=== PATIENT | female | born 1985 | race Caucasian/White ===

== ENCOUNTER 2018-10-27 16:04 | Emergency (ER) | payer MEDICAID ==
[2018-10-27 16:21] VITALS: BP 105/65
[2018-10-27 16:28] LABS: APPEARANCE,URINE CLEAR; BILIRUBIN,URINE NEGATIVE (NEGATIVE); COLOR,URINE COLORLESS; GLUCOSE, URINE NEGATIVE (NEGATIVE); KETONES,URINE NEGATIVE (NEGATIVE); LEUKOCYTE ESTERASE,URINE NEGATIVE (NEGATIVE); NITRITE,URINE NEGATIVE (NEGATIVE); PROTEIN,URINE NEGATIVE (NEGATIVE); URINE SPECIFIC GRAVITY 1.002; UROBILINOGEN,URINE NEGATIVE mg/dL (<2.0)
[2018-10-27 16:45] LABS: URINE AMPHETAMINES SCREEN NEGATIVE; URINE BARBITURATES SCREEN NEGATIVE; URINE BENZODIAZEPINES SCREEN NEGATIVE; URINE COCAINE SCREEN NEGATIVE; URINE MARIJUANA (THC) SCREEN NEGATIVE; URINE METHADONE SCREEN NEGATIVE; URINE PHENCYCLIDINE SCREEN NEGATIVE
== END 2018-10-27 17:00 | disposition left against medical advice (07) ==
LOC: ER 16:04
DX: Z53.21 Procedure and treatment not carried out due to patient leaving prior to being seen by health care provider (principal)
CPT/HCPCS: 80307; 81001

== ENCOUNTER 2018-10-30 11:55 | Emergency (ER) | payer MEDICAID ==
[2018-10-30] MEDS ORDERED: BENZONATATE 100 MG CAPSULE PO ONE (13:24)
[2018-10-30] MEDS ORDERED: IBUPROFEN 600 MG TABLET PO ONE (13:24)
[2018-10-30] MEDS ORDERED: IPRATROPIUM/ALBUTEROL 0.5-2.5 MG/3 ML AMPUL NEB ONE (13:25)
[2018-10-30] MEDS ORDERED: PREDNISONE 20 MG TABLET PO ONE (13:25)
[2018-10-30] MEDS ORDERED: ALBUTEROL SULFATE HFA (90 MCG/PUFF) 8 GM MDI (1 MDI/ER DISP) IH ONE (14:22)
--- NOTE | 2018-10-30 14:22 | ER Document Report ---
HPI - HPI Time Seen by Provider: 10/30/18 13:11 Pain Level: 3 Notes: Patient is a 33-year-old female who presents with chief complaint of sore throat over the last 2 days with cough and congestion as well as leg spasms. Patient reports that she takes Percocet or gabapentin for her leg spasms. Patient requesting a refill of these medications. - CONSTITUTIONAL Constitutional: REPORTS: Fever. DENIES: Chills - NEURO Neurology: REPORTS: Headache - REPRODUCTIVE Reproductive: DENIES: : Past Medical History - General Information source: Patient - Social History Smoking Status: Current Every Day Smoker Family History: None, Reviewed & Not Pertinent Patient has suicidal ideation: No Patient has homicidal ideation: No Pulmonary Medical History: Reports: Hx Asthma Renal/ Medical History: Denies: Hx Peritoneal Dialysis Past Surgical History: Reports: Hx Orthopedic Surgery - jaw - Immunizations Hx Diphtheria, Pertussis, Tetanus Vaccination: Yes - unknown Vertical Provider Document - CONSTITUTIONAL Notes: PHYSICAL EXAMINATION: GENERAL: Disheveled, well-nourished and in no acute distress. HEAD: Atraumatic, normocephalic. EYES: Pupils equal round and reactive to light, extraocular movements intact, conjunctiva are normal. ENT: Nares patent with clear rhinorrhea., oropharynx clear without exudates, no evidence of peritonsillar abscess.. Moist mucous membranes. NECK: Normal range of motion, supple without lymphadenopathy LUNGS: Breath sounds clear to auscultation bilaterally and equal. Mild expiratory wheezing noted bilaterally. HEART: Regular rate and rhythm without murmurs ABDOMEN: Soft, nontender, nondistended abdomen. No guarding, no rebound. No masses appreciated. Female : deferred Musculoskeletal: Normal range of motion, no pitting or edema. No cyanosis. NEUROLOGICAL: Cranial nerves grossly intact. Normal speech, normal gait. Normal sensory, motor exams PSYCH: Flat affect. SKIN: Warm, Dry, normal turgor, no rashes or lesions noted. - INFECTION CONTROL TRAVEL OUTSIDE OF THE [place] IN LAST 30 DAYS: No Course - Re-evaluation Re-evalutation: Rapid strep is negative. Patient's lung sounds improved after administration of breathing treatments. Explained to patient that I would not be able to prescribe her Percocet or gabapentin for her chronic leg spasms as that is not the appropriate treatment nor do we manage chronic pain in the emergency department. Patient with likely viral upper respiratory illness. Will be discharged home in stable condition. - Vital Signs Vital signs: Temp Pulse Resp BP Pulse Ox 98.5 F 111 H 16 111/73 99 10/30/18 12:09 10/30/18 12:09 10/30/18 12:09 10/30/18 12:10/30/18 12:09 Discharge - Discharge Clinical Impression: Viral upper respiratory illness Condition: Stable Disposition: HOME, SELF-CARE Additional Instructions: UPPER RESPIRATORY ILLNESS: You have a viral infection of the respiratory passages -- a "cold." This common infection causes nasal congestion, drainage, and often sore throat and cough. It is highly contagious. The disease usually lasts about 10 to 14 days. There is no "cure" for the viral infection -- it must run its course. If there is a complication, such as bacterial infection in the nose, sinuses, middle ear, or bronchial tubes, antibiotics may be required. The antibiotics won't affect the virus. Drink plenty of fluids. A humidifier may help. An expectorant medication or decongestant may make you more comfortable. Use acetaminophen or ibuprofen for fever or aches. See the doctor if fever persists over two days, if there is any significant worsening of your symptoms, or if you simply fail to improve as expected. BRONCHOSPASM: You have tightness in the bronchial tubes, called bronchospasm. This often occurs with bronchial infections. Allergies, inhaled chemicals, and polluted or cold air can also provoke bronchospasm. It's more likely in patients with asthma in the family. Emergency treatment of bronchospasm may include adrenaline shots or bronchodilator aerosol. You may feel lightheaded and have a rapid pulse for an hour or two. Rest and get plenty of fluids. At home, we'll treat you with a bronchodilator inhaler. Antibiotics and corticosteroids may be required for some patients. Until you recover, avoid chemical fumes, dusts, pollens, and exercising in very cold or dry air. If you smoke, stop now!! If you develop a fever, increased wheezing, chest pain, or severe shortness of breath, you should contact the doctor immediately. DECONGESTANT MEDICATION: A decongestant medicine has been prescribed. Often this medicine is combined in the same tablet with an antihistamine or expectorant. This type of medicine is helpful in treating a bad cold or sinus condition, as well as in treatment of the nasal congestion of hay fever. It is not of much benefit for lung infections. Decongestant medicines are related to stimulants. They can cause an increase in blood pressure and heart rate. Persons with heart disease and high blood pressure should not take decongestants without discussing this with the physician. If you develop palpitations, chest pain, headache, or tremors, stop the medicine and consult your physician. COUGH-SUPPRESSANT & EXPECTORANT MEDICATION: You are to use a cough medication as needed for relief of symptoms. This medicine is a combination of an expectorant (to make the mucous thinner and more easily "coughed up") and a cough suppressant (to reduce the frequency of coughing). The cough-suppressant medicine is related to narcotics. You may experience mild nausea and sleepiness. Some patients who are very sensitive to narcotics may have stomach pain from this medicine. Taking the medicine with food reduces these side effects. Do not drive or work with machinery until you know how this medicine affects you. The expectorant should have no side effects. Iodine-containing expectorants (such as organidin) should not be taken by persons with active thyroid disease unless approved by your doctor. Call the doctor if you develop shortness of breath, hives, rash, itching, lightheadedness, or severe nausea and vomiting. INHALED BRONCHODILATORS: You have received a treatment of and/or prescription for an inhaled bronchodilator -- a medication which stimulates the airways in the lung to dilate. This improves the flow of air in asthma, bronchitis, and emphysema. These medicines have some similarity to adrenaline, and can cause similar side effects: shakiness, racing heart, and a sense of nervousness. These side effects decrease with time. Contact your doctor if these side effects are severe. Do not over-use the medicine. Too-frequent use of the inhaler may make it ineffective. Call your doctor if the inhaler is not controlling your symptoms at the prescribed doses. STEROID MEDICATION: You have been given an injection of or oral medicine of the cortisone/steroid class. This medication is used to control inflammation or allergy. Marcus t is usually only given for a short period of time, until the acute process subsides. There are usually no side effects from short-term use of cortisone-like medications. Some persons feel an increased sense of well-being and are not sleepy at bedtime. Long-term use of cortisone medications is best avoided, unless required for a severe condition. If your condition does not remit, or relapses after the course of corticosteroid medication, you should consult your physician. USE OF ACETAMINOPHEN (Tylenol): Acetaminophen may be taken for pain relief or fever control. It's much safer than aspirin, offering a wider range of "safe" dosages. It is safe during . Some brand names are Tylenol, Panadol, Datril, Anacin 3, Tempra, and Liquiprin. Acetaminophen can be repeated every four hours. The following are maximum recommended dosages: >89 pounds or adults 650 mg to 900 mg Acetaminophen can be repeated every four hours. Maximum dose not to exceed 4000 mg a day. SMOKING: If you smoke, you should stop smoking. The tar and chemicals in cigarette smoke are harmful. Smoking has been shown to cause: emphysema chronic bronchitis lung cancer mouth and throat cancer stomach and pancreas cancer premature aging defects In addition, smoking increases ear and lung infections in children of smokers. FOLLOW-UP CARE: If you have been referred to a physician for follow-up care, call the physicians office for an appointment as you were instructed or within the next two days. If you experience worsening or a significant change in your symptoms, notify the physician immediately or return to the Emergency Department at any time for re-evaluation. Prescriptions: Benzonatate [Tessalon Perles 100 mg Capsule] 100 mg PO Q8HP PRN #40 capsule PRN Reason: Fluticasone Propionate [Flonase Nasal [place] 50 Mcg/[place] 16 gm] 2 sprays NASL Q12 #1 inhaler Prednisone [Deltasone 20 mg Tablet] 3 tab PO DAILY 4 Days #12 tablet
[2018-10-30 14:59] VITALS: BP 110/64
== END 2018-10-30 15:08 | disposition home or self-care (01) ==
LOC: ER 11:55
DX: J06.9 Acute upper respiratory infection, unspecified (principal); B97.89 Other viral agents as the cause of diseases classified elsewhere; J02.9 Acute pharyngitis, unspecified; R05 Cough; R09.81 Nasal congestion; M62.838 Other muscle spasm; Z79.899 Other long term (current) drug therapy; F17.200 Nicotine dependence, unspecified, uncomplicated; J45.909 Unspecified asthma, uncomplicated
CPT/HCPCS: 94640; 99283; 87070; 87880; 87077; J3490 ×3; J7512; J7620

== ENCOUNTER 2018-12-04 09:43 | Emergency (ER) | payer MEDICAID ==
[2018-12-04] MEDS ORDERED: LIDOCAINE 5% (700 MG) TRANSDERMAL ADH..PATCH TP ONE (10:58)
[2018-12-04] MEDS ORDERED: KETOROLAC TROMETHAMINE 60 MG/2 ML SDV IM ONE (10:58)
[2018-12-04] MEDS ORDERED: DEXAMETHASONE 4 MG TABLET PO ONE (10:58)
--- NOTE | 2018-12-04 11:04 | ER Document Report ---
ED Fall - General Chief Complaint: Fall Stated Complaint: FALL Time Seen by Provider: 12/04/18 10:49 Mode of Arrival: Ambulatory Information source: Patient Notes: 33-year-old female presents to ED for complaint of pain to her lower back radiating upper back since Tuesday. She states she fell down 6 stairs landing on her tailbone. She states she has not been able to move a lot since then because she fell. She states she has been taken Tylenol and Motrin and that did not help so at 8:00 this morning she took 1 of her friend's Percocet 02/16/2025. Patient is alert oriented respirations regular and unlabored speaking in full sentences walks with a limp bent over due to the pain in her tailbone. She states that her period was at least 2-3 weeks ago she is not sure when but she does not think she is . TRAVEL OUTSIDE OF THE [place] IN LAST 30 DAYS: No - HPI Occurred: Other - Tuesday Where: Home, Indoors Context: Tripped - Fell down 6 steps Associated symptoms: None Location of injury/pain: Back Severity: Severe Pain Level: 5 - Related data Allergies/Adverse Reactions: No Known Allergies Allergy (Verified 12/04/18 09:46) Past Medical History - General Information source: Patient - Social History Smoking Status: Current Every Day Smoker Cigarette use (# per day): Yes - ppd Chew tobacco use (# tins/day): No Smoking Education Provided: Yes - 4 min Frequency of alcohol use: Social Drug Abuse: Prescription drugs - Took 1 of her friend's Percocets due to the pain Lives with: Family Family History: None, Reviewed & Not Pertinent Patient has suicidal ideation: No Patient has homicidal ideation: No - Past Medical History Cardiac Medical History: Reports: None Pulmonary Medical History: Reports: Hx Asthma EENT Medical History: Reports: None Neurological Medical History: Reports: None Endocrine Medical History: Reports: None Renal/ Medical History: Reports: None Malignancy Medical History: Reports: None GI Medical History: Reports: None Musculoskeletal Medical History: Reports Hx Musculoskeletal Trauma, Reports Hx Restless Leg Syndrome Skin Medical History: Reports None Psychiatric Medical History: Reports: Hx Anxiety, Hx Depression Traumatic Medical History: Reports: None Infectious Medical History: Reports: None Past Surgical History: Reports: Hx Orthopedic Surgery - jaw - Immunizations Immunizations up to date: No Hx Diphtheria, Pertussis, Tetanus Vaccination: No - unknown Review of Systems - Review of Systems Constitutional: No symptoms reported EENT: No symptoms reported Cardiovascular: No symptoms reported Respiratory: No symptoms reported Gastrointestinal: No symptoms reported Genitourinary: No symptoms reported Female Genitourinary: No symptoms reported Musculoskeletal: Back pain, Muscle pain, Muscle stiffness Skin: No symptoms reported Hematologic/Lymphatic: No symptoms reported Neurological/Psychological: No symptoms reported -: Yes All other systems reviewed and negative Physical Exam - Vital signs Vitals: Temp Pulse Resp BP Pulse Ox 98.8 F 96 16 107/79 96 12/04/18 09:49 12/04/18 09:49 12/04/18 09:49 12/04/18 09:49 12/04/18 09:49 Interpretation: Normal - General General appearance: Appears well, Alert - HEENT Head: Normocephalic, Atraumatic Eyes: Normal Pupils: PERRL - Respiratory Respiratory status: No respiratory distress Chest status: Nontender Breath sounds: Normal Chest palpation: Normal - Cardiovascular Rhythm: Regular Heart sounds: Normal auscultation Murmur: No - Abdominal Inspection: Normal Distension: No distension Bowel sounds: Normal Tenderness: Nontender Organomegaly: No organomegaly - Back Back: Normal, Tender, Vertebra tenderness. No: Deformity/step-off, CVA tenderness, Scars, Scoliosis, Wounds Notes: Patient has no signs or symptoms of cauda equina, she is able to walk with a even gait. She is limping due to the pain. She has no loss of control of bowel or bladder, no saddle anesthesia, no loss of no loss of control of the lower extremities. - Extremities General upper extremity: Normal inspection, Nontender, Normal color, Normal ROM, Normal temperature General lower extremity: Normal inspection, Nontender, Normal color, Normal ROM, Normal temperature, Normal weight bearing. No: Poncho's sign - Neurological Neuro grossly intact: Yes Cognition: Normal Orientation: AAOx4 [place] Coma Scale Eye Opening: Spontaneous [place] Coma Scale Verbal: Oriented [place] Coma Scale Motor: Obeys Commands [place] Coma Scale Total: 15 Speech: Normal Motor strength normal: LUE, RUE, LLE, RLE Sensory: Normal - Psychological Associated symptoms: Normal affect, Normal mood - Skin Skin Temperature: Warm Skin Moisture: Dry Skin Color: Normal Course - Re-evaluation Re-evalutation: 12/04/18 13:48 After performing a Medical Screening Examination, I estimate there is LOW risk for EXPANDING OR RUPTURED ABDOMINAL AORTIC ANEURYSM, CAUDA EQUINA SYNDROME, EPIDURAL MASS LESION, or HERNIATED DISK CAUSING SEVERE SPINAL STENOSIS, thus I consider the discharge disposition reasonable. I have reevaluated this patient multiple times and no significant life threatening changes are noted. The patient and I have discussed the diagnosis and risks, and we agree with discharging home and close follow-up. We also discussed returning to the Emergency Department immediately if new or worsening symptoms occur with the understanding that symptoms and presentations can change. We have discussed the symptoms which are most concerning (e.g., saddle anesthesia, urinary or bowel incontinence or retention, changing or worsening pain) that necessitate immediate return. - Vital Signs Vital signs: Temp Pulse Resp BP Pulse Ox 98.6 F 88 15 112/79 98 12/04/18 12:40 12/04/18 12:40 12/04/18 12:40 12/04/18 12:40 12/04/18 12:40 - Laboratory Laboratory results interpreted by me: 12/04/18 10:55 Urine Urobilinogen 2.0 H - Diagnostic Test Radiology reviewed: Image reviewed, Reports reviewed Discharge - Discharge Clinical Impression: Muscle strain Fall Qualifiers: Encounter type: initial encounter Qualified Code(s): W19.XXXA - Unspecified fall, initial encounter Back pain Qualifiers: Back pain location: low back pain Chronicity: acute Back pain laterality: bilateral Sciatica presence: without sciatica Qualified Code(s): M54.5 - Low back pain Condition: Stable Disposition: HOME, SELF-CARE Instructions: Family Physicians / Practices Additional Instructions: CONTUSION: Your injury has resulted in a contusion -- a crushing of the deep tissues. No injury to important structures was detected during the physician's exam. Contusions vary in the amount of pain they cause, and in the length of time required for healing. Typically, the area will become bruised, and will remain painful to touch for two or three weeks. However, most patients are back to working and playing within a few days. After the initial period of rest and cold-packs, your symptoms (together with the doctor's recommendations) will determine how rapidly you can get back to full activity. Usually this means "do what feels okay, but don't do things that hurt." If re-examination was recommended, it's important to follow up as instruc braulio. Call the doctor or return any time if pain increases, if swelling becomes severe, if you develop numbness or weakness in an injured extremity, or if any other alarming symptoms occur. LOW BACK PAIN: Three out of every four people will have an episode of disabling back pain during their lifetime. Most commonly the pain is due to straining of the muscles and ligaments in the low back. Usual treatment includes: (1) Rest on a firm surface. Avoid lying on your stomach. (2) Ice pack the painful area. After a few days, gentle heat may be used intermittently to relax the area, or ice packs can be continued. (3) Medication may be needed -- muscle relaxers and antiinflammatory medicines are commonly used. (4) As the back improves, exercises are prescribed to strengthen the back and abdominal muscles. Your doctor will advise you on the proper care for your back at each stage in your recovery. You may be better in a few days -- or healing may take several weeks. If new symptoms of a "herniated disc" (radiation of pain, numbness, or tingling down the back of the leg or weakness in the leg) occur, you should be re-examined. Further testing may be necessary. USE OF TYLENOL (ACETAMINOPHEN): Acetaminophen may be taken for pain relief or fever control. It's much safer than aspirin, offering a wider range of "safe" dosages. It is safe during . Some brand names are Tylenol, Panadol, Datril, Anacin 3, Tempra, and Liquiprin. Acetaminophen can be repeated every four hours. The following are maximum recommended dosages: WEIGHT Dose Drops Elixir Chewable(80mg) (LBS.) drprs=droppers tsp=teaspoon 6 40 mg 0.4 ml (1/2) 6-11 80 mg 0.8 ml (full) tsp 1 tab 12-16 120 mg 1 1/2 drprs 3/4 tsp 1 1/2 tabs 17-23 160 mg 2 drprs 1 tsp 2 tabs 24-30 240 mg 3 drprs 1 1/2 tsp 3 tabs 30-35 320 mg 2 tsp 4 tabs 36-41 360 mg 2 1/4 tsp 4 1/2 tabs 42-47 400 mg 2 1/2 tsp 5 tabs 48-53 480 mg 3 tsp 6 tabs 54-59 520 mg 3 1/4 tsp 6 1/2 tabs 60-64 560 mg 3 1/2 tsp 7 tabs 65-70 600 mg 3 3/4 tsp 7 1/2 tabs 71-76 640 mg 4 tsp 8 tabs 77-82 720 mg 4 1/2 tsp 9 tabs 83-88 800 mg 5 tsp 10 tabs >89 pounds or adults 650 mg to 900 mg Acetaminophen can be repeated every four hours. Maximum dose not to exceed 4000 mg a day. These maximum recommended dosages are slightly higher than the dosages written on the product container, but these dosages are very safe and below the toxic dosage for acetaminophen. ICE PACKS: Apply ice packs frequently against the painful area. Many different schedules are recommended, such as "20 minutes on, 20 minutes off" or "one hour ice, two hours rest." If you need to work, you may need to go longer between ice treatments. You should plan to have the area ice packed AT LEAST one fourth of the time. The ice should be applied over the wrap, tape, or splint, or over a layer of cloth -- not directly against the skin. Some ice bags have a built-in cloth and can be put directly on the skin. WARM PACKS: After approximately two days, apply gentle heat (such as a heating pad or hot water bottle) for about 20 to 30 minutes about every two hours -- at least four times daily. Warmth and elevation will help you make a more rapid recovery, and will ease the pain considerably. Do not use HOT heat, and never apply heat for longer than 30 minutes. The continuous heat can invisibly damage skin and muscles -- even when no burn is seen on the surface. Damaged muscles can make you MORE sore. MUSCLE RELAXERS: Muscle relaxing medications are usually prescribed for acute muscle spasm or injury to the neck and back. They are often combined with antiinflammatory pain medication for increased relief. You may stop the muscle relaxer when the pain and stiffness have improved. Start the medication again if spasms recur. Muscle relaxers may cause drowsiness, especially with the first dose. Do not operate machinery or drive while under the effects of the medication. Most muscle relaxers last up to 24 hours. Do not combine the medication with alcohol. Toradol Injection You have been given an injection of ketorolac tromethamine (Toradol). This is an excellent, safe drug for pain control. It also has potent antiinflammatory action. You should have significant pain relief within about one hour. Toradol is not addicting and is non-sedating. It does not interfere with driving or work. Call or return if you develop itching, hives, shortness of breath, or rash. Stretching Exercises for the Back The physician has recommended that you begin stretching exercises for your back. These are often used even while the back is painful. However, you should notify the physician if the activities seem to increase your pain. PELVIC TILT: Lie flat on your back with knees bent. Tighten your stomach and buttock muscles so it flattens your lower back against the floor. Hold 10 seconds. Repeat 10 times, twice daily. KNEE RAISE: Lying on the back with knees bent, raise one knee to your chest, then the other. Hold both knees against the chest 10 seconds, then lower one knee at a time. Repeat 10 times, twice daily. PARTIAL TRUNK RAISE: Lie face down, arms at your sides. Keeping your waist on the floor, use your arms raise your chest up. Support yourself on your elbows for 30 seconds. Repeat twice daily, increasing the time to two minutes as you recover. We have applied a Lidoderm patch to your back for your discomfort. This needs to be removed in 12 hours. She states she has Medicaid which would not pay for the prescription of Lidoderm patches but she can get them [id number] they are not quite as strong but they would help some. You could also use Aspercreme lidocaine cream which will do the same thing. You need to follow-up with your primary care doctor and get a back specialist if you continue to have pain. FOLLOW-UP CARE: If you have been referred to a physician for follow-up care, call the physicians office for an appointment as you were instructed or within the next two days. If you experience worsening or a significant change in your symptoms, notify the physician immediately or return to the Emergency Department at any time for re-evaluation. Prescriptions: Methocarbamol [Robaxin 500 mg Tablet] 500 mg PO BIDP PRN #20 tablet PRN Reason: Forms: Smoking Cessation Education
[2018-12-04 11:23] LABS: APPEARANCE,URINE CLOUDY; BILIRUBIN,URINE NEGATIVE (NEGATIVE); COLOR,URINE YELLOW; GLUCOSE, URINE NEGATIVE (NEGATIVE); KETONES,URINE NEGATIVE (NEGATIVE); LEUKOCYTE ESTERASE,URINE NEGATIVE (NEGATIVE); NITRITE,URINE NEGATIVE (NEGATIVE); PROTEIN,URINE NEGATIVE (NEGATIVE); URINE SPECIFIC GRAVITY 1.026
[2018-12-04 11:33] LABS: URINE AMPHETAMINES SCREEN NEGATIVE; URINE BARBITURATES SCREEN NEGATIVE; URINE BENZODIAZEPINES SCREEN UNCONFIRMED POSITIVE; URINE COCAINE SCREEN NEGATIVE; URINE MARIJUANA (THC) SCREEN NEGATIVE; URINE METHADONE SCREEN NEGATIVE; URINE PHENCYCLIDINE SCREEN NEGATIVE
--- NOTE | 2018-12-04 12:33 | RADIOLOGY REPORT (SQ) ---
EXAM DESCRIPTION: L SPINE WHOLE COMPLETED DATE/TIME: 12/04/2018 12:00 pm REASON FOR STUDY: fall pain in coccyx COMPARISON: None. NUMBER OF VIEWS: Five views including obliques. TECHNIQUE: AP, lateral, oblique, and sacral radiographic images acquired of the lumbar spine. LIMITATIONS: None. FINDINGS: MINERALIZATION: Normal. SEGMENTATION: Normal. No transitional anatomy. ALIGNMENT: Minimal scoliosis. VERTEBRAE: Maintained height. No fracture or worrisome bone lesion. DISCS: Preserved height. No significant osteophytes or end plate irregularity. POSTERIOR ELEMENTS: Pedicles and facets are intact. No pars defect or posterior arch defects. HARDWARE: None in the spine. PARASPINAL SOFT TISSUES: Normal. PELVIS: Intact as visualized. No fractures or worrisome bone lesions. SI joints intact. OTHER: No other significant finding. IMPRESSION: Minimal scoliosis. No acute findings. TECHNICAL DOCUMENTATION: JOB ID: [id number] [employer]- All Rights Reserved Reading location - IP/workstation name: [email or web address]
[2018-12-04] MEDS ORDERED: METHOCARBAMOL 500 MG TABLET PO ONE (12:36)
[2018-12-04 12:42] VITALS: BP 112/79
== END 2018-12-04 12:42 | disposition home or self-care (01) ==
LOC: ER 09:43
DX: T14.8XXA Other injury of unspecified body region, initial encounter (principal); M54.5 Low back pain; W10.9XXA Fall (on) (from) unspecified stairs and steps, initial encounter; Y92.009 Unspecified place in unspecified non-institutional (private) residence as the place of occurrence of the external cause; J45.909 Unspecified asthma, uncomplicated; F17.210 Nicotine dependence, cigarettes, uncomplicated; Z71.6 Tobacco abuse counseling
CPT/HCPCS: 99406; 99283; 96372; 81025; 81001; 80307; 72110; J3490 ×3; J1885

== ENCOUNTER 2019-01-26 23:27 | Emergency (ER) | payer MEDICAID ==
[2019-01-27] MEDS ORDERED: DIPH/PERTUSS(ACELL)/TETANUS VAC/PF 0.5 ML SYR (>=10YO) IM ONE (01:09)
[2019-01-27] MEDS ORDERED: LIDOCAINE 1%/EPINEPHRINE INJ 20 ML VIAL INJ ONE (01:10)
--- NOTE | 2019-01-27 01:13 | ER Document Report ---
ED General - General Chief Complaint: Laceration Stated Complaint: Right arm laceration Time Seen by Provider: 01/27/19 00:55 Cannot obtain history due to: Intoxicated, Uncooperative Notes: Patient is a 33-year-old female with unknown past medical history who presents highly intoxicated, somewhat agitated after apparently punching a window because she could not get her knees. Patient is unable to provide appropriate history secondary to her degree of intoxication, does not know what time it is or why she is here in the emergency department. Per EMS the patient was bleeding heavily from a laceration of her right wrist and bandages were applied. Patient does not know when her last tetanus was administered. She does admit to drinking heavily tonight. TRAVEL OUTSIDE OF THE [place] IN LAST 30 DAYS: No - Related Data Allergies/Adverse Reactions: No Known Allergies Allergy (Verified 12/04/18 09:46) Past Medical History - General Information source: Patient - Social History Smoking Status: Current Every Day Smoker Chew tobacco use (# tins/day): No Frequency of alcohol use: Social Drug Abuse: None Lives with: Spouse/Significant other Family History: Reviewed & Not Pertinent Patient has suicidal ideation: No Patient has homicidal ideation: No Pulmonary Medical History: Reports: Hx Asthma Renal/ Medical History: Denies: Hx Peritoneal Dialysis Musculoskeletal Medical History: Reports Hx Musculoskeletal Trauma Psychiatric Medical History: Reports: Hx Anxiety, Hx Depression Past Surgical History: Reports: Hx Orthopedic Surgery - jaw - Immunizations Immunizations up to date: No Hx Diphtheria, Pertussis, Tetanus Vaccination: No - unknown Review of Systems - Review of Systems Notes: Constitutional: Negative for fever. Eyes: Negative for visual changes. ENT: Negative for facial injury Cardiovascular: Negative for chest injury. Respiratory: Negative for shortness of breath. Gastrointestinal: Negative for abdominal injury. Genitourinary: Negative for genital injury Musculoskeletal: Positive for right hand injury Skin: Positive for laceration/abrasions. Neurological: Negative for head injury. Physical Exam - Vital signs Vitals: Temp Pulse Resp BP Pulse Ox 97.5 F 96 16 106/68 100 01/26/19 23:56 01/26/19 23:56 01/26/19 23:56 01/26/19 23:56 01/26/19 23:56 Interpretation: Normal Notes: PHYSICAL EXAMINATION: GENERAL: Intoxicated lying in bed in no distress HEAD: Atraumatic, normocephalic. EYES: Pupils equal round and reactive to light, extraocular movements intact, sclera anicteric, conjunctiva are normal. ENT: nares patent, no oral pharyngeal trauma. No hemotympanum, no Parham's sign, no raccoon eyes. NECK: No midline cervical spine tenderness. Patient able to move their head to 45 bilaterally without any discomfort. LUNGS: Breath sounds clear to auscultation bilaterally and equal. No wheezes rales or rhonchi. HEART: Regular rate and rhythm without murmurs. CHEST WALL: No ecchymosis over the chest wall. ABDOMEN: Soft, nontender, normoactive bowel sounds. No guarding, no rebound. No abdominal bruising or injuries EXTREMITIES: Full flexion and extension of the right wrist. RMU motor and sensory distribution intact bilaterally including against resistance on motor testing. NEUROLOGICAL: RMU motor and sensory distribution intact bilaterally. Moves all extremities spontaneously and on command. PSYCH: Intoxicated, somewhat agitated SKIN: Warm, Dry, normal turgor, 2.5 cm laceration over the right wrist Course - Re-evaluation Re-evalutation: 01/27/19 01:12 Patient presents with a 2.5 cm laceration radial aspect of her right wrist. Wound was cleaned, irrigated, x-rays obtained to exclude fracture underlying retained foreign body as apparently she punched through glass. This is noted to be normal. Tetanus is updated. Right hand x-ray was also normal. She is neurovascularly intact, RMU motor and sensory distribution is intact bilaterally including against resistance in all digits of the right hand. Wrist flexion and extension intact. Patient did not have any trauma to the foot only dried blood which appears to be from a laceration on her right wrist no indication for imaging of the lower extremities. The remainder of her assessment is otherwise unremarkable except for significant intoxication. The patient will be monitored until she is sober enough to walk and talk coherently. 01/27/19 0240 Patient ambulating without any difficulty. Talking in complete sentences. At this time will discharge with return precautions and follow-up recommendations. Verbal discharge instructions given a the bedside and opportunity for questions given. Medication warnings reviewed. Patient is in agreement with this plan and has verbalized understanding of return precautions and the need for primary care follow-up in the next 24-72 hours. - Vital Signs Vital signs: Temp Pulse Resp BP Pulse Ox 97.8 F 109 H 18 124/78 100 01/27/19 02:39 01/27/19 02:39 01/27/19 02:39 01/27/19 02:39 01/26/19 23:56 - Diagnostic Test Radiology reviewed: Image reviewed, Reports reviewed Radiology results interpreted by me: 01/27/19 03:28 Right wrist x-ray: No acute fracture or dislocation Right hand x-ray: No acute fracture Procedures - Laceration/Wound Repair Right Wrist Wound length (cm): 2.5 Wound's Depth, Shape: Superficial Laceration pre-procedure: Sterile PPE donned Anesthetic type: 1% Lidocaine w/epi Volume Anesthetic (mLs): 2 Wound explored: Clean Irrigated w/ Saline (mLs): 500 Wound Debrided: Minimal Wound Repaired With: Sutures Suture Size/Type: 5:0, Prolene Number of Sutures: 5 Layer Closure?: No Post-procedure wound care: Sterile dressing applied Post-procedure NV exam normal: Yes Complications: No Discharge - Discharge Clinical Impression: Injury of right hand Qualifiers: Encounter type: initial encounter Qualified Code(s): S69.91XA - Unspecified injury of right wrist, hand and finger(s), initial encounter Laceration of right wrist Qualifiers: Encounter type: initial encounter Qualified Code(s): S61.511A - Laceration without foreign body of right wrist, initial encounter Alcohol intoxication Qualifiers: Complication of substance-induced condition: uncomplicated Qualified Code(s): F10.920 - Alcohol use, unspecified with intoxication, uncomplicated Condition: Good Disposition: HOME, SELF-CARE Additional Instructions: Please return to your primary doctor, the ED, or an urgent care in 7 days for suture removal. Return immediately if you develop spreading redness around the wound, pus from the wound, worsening pain, or a fever of >100.4. Keep the area clean and dry. Wash gently with soap and water twice daily and cover with antibiotic ointment. You were seen in the emergency department today for being drunk. Being seen in the emergency department after drinking alcohol is a serious indicator that you have a problem with alcohol. You should seek help with the attached resources for your problem drinking. Please return to the emergency room immediately if you experience any concerning symptoms including high fevers, severe headache, chest pain, difficulty breathing, abdominal pain, slurred speech, numbness or weakness in your arms or legs, or any other symptom that concerns you.
--- NOTE | 2019-01-27 02:20 | RADIOLOGY REPORT (SQ) ---
EXAM DESCRIPTION: XR HAND 3 OR MORE VIEWS, XR WRIST 3 OR MORE VIEWS COMPLETED DATE/TME: 01/27/2019 00:00 CLINICAL HISTORY: 33 years Female, TRAUMA COMPARISON: None. Findings: Moderate deformity of the right fourth metacarpus indicative of prior injury. Bones, joints, and soft tissues of the RIGHT XR HAND 3 OR MORE VIEWS, XR WRIST 3 OR MORE VIEWS appear otherwise unremarkable. IMPRESSION: No acute findings.
[2019-01-27 02:42] VITALS: BP 124/78
== END 2019-01-27 02:40 | disposition home or self-care (01) ==
LOC: ER 23:27
DX: S61.511A Laceration without foreign body of right wrist, initial encounter (principal); S69.91XA Unspecified injury of right wrist, hand and finger(s), initial encounter; W25.XXXA Contact with sharp glass, initial encounter; F10.920 Alcohol use, unspecified with intoxication, uncomplicated; Z23 Encounter for immunization
CPT/HCPCS: 99283; 90471; 73130; 73110; 90715; 12001; J3490

== ENCOUNTER 2019-04-18 16:12 | Emergency (ER) | payer MEDICAID ==
[2019-04-18] MEDS ORDERED: AMMONIA INHALANTS 10 AMPUL/BOX IH ONE (16:22)
[2019-04-18] MEDS ORDERED: NALOXONE HCL INJ/PF 0.4 MG/1 ML SDV IM ONE (16:22)
[2019-04-18 16:57] LABS: ABSOLUTE BASOPHILS # (AUTO) 0.1 10^3/uL (0.0-0.2); ABSOLUTE EOSINOPHILS # (AUTO) 0.1 10^3/uL (0.0-0.6); ABSOLUTE LYMPHOCYTES (AUTO) 1.3 10^3/uL (0.5-4.7); ABSOLUTE MONOCYTES (AUTO) 0.7 10^3/uL (0.1-1.4); ABSOLUTE NEUT (AUTO) 4.8 10^3/uL (1.7-8.2); BASOPHILS % (AUTO) 1.1 % (0-2); EOSINOPHILS % (AUTO) 1.6 % (0-6); HEMATOCRIT 38.2 % (36.0-47.0); HEMOGLOBIN 12.7 g/dL (12.0-15.5); LYMPHOCYTES % (AUTO) 18.5 % (13-45); MEAN CORPUSCULAR HEMOGLOBIN 31.2 pg (27.0-33.4); MEAN CORPUSCULAR HGB CONC 33.2 g/dL (32.0-36.0); MEAN CORPUSCULAR VOLUME 94 fl (80-97); MONOCYTES % (AUTO) 10.5 % (3-13); PLATELET COUNT 242 10^3/uL (150-450); RED BLOOD COUNT 4.06 10^6/uL (3.72-5.28); RED CELL DISTRIBUTION WIDTH 13.2 % (11.5-14.0); SEGMENTED NEUTROPHILS % (AUTO) 68.3 % (42-78); TOTAL CELLS COUNTED % (AUTO) 100 %
--- NOTE | 2019-04-18 17:05 | RADIOLOGY REPORT (SQ) ---
EXAM DESCRIPTION: CT HEAD WITHOUT COMPLETED DATE/TIME: 04/18/2019 4:51 pm REASON FOR STUDY: change in mental status COMPARISON: None. TECHNIQUE: Axial images acquired through the brain without intravenous contrast. Images reviewed wi th bone, brain and subdural windows. Images stored on PACS. All CT scanners at this facility use dose modulation, iterative reconstruction, and/or weight based d osing when appropriate to reduce radiation dose to as low as reasonably achievable (ALARA). [facility]: Dose Right [facility]: CareDose [facility]: Dose Right [facility]: Teradose 4D [facility]: myThings RADIATION DOSE: CT Rad equipment meets quality standard of care and radiation dose reduction techniq ues were employed. CTDIvol: 53.2 mGy. DLP: 1070 mGy-cm. mGy. LIMITATIONS: None. FINDINGS: VENTRICLES: Normal size and contour. CEREBRUM: No masses. No hemorrhage. No midline shift. No evidence for acute infarction. Normal gra y/white matter differentiation. No areas of low density in the white matter. CEREBELLUM: No masses. No hemorrhage. No alteration of density. No evidence for acute infarction. EXTRAAXIAL SPACES: No fluid collections. No masses. ORBITS AND GLOBE: No intra- or extraconal masses. Normal contour of globe without masses. CALVARIUM: No fracture. PARANASAL SINUSES: No fluid or mucosal thickening. SOFT TISSUES: No mass or hematoma. OTHER: No other significant finding. IMPRESSION: NORMAL BRAIN CT WITHOUT CONTRAST. EVIDENCE OF ACUTE STROKE: NO. COMMENT: Quality ID # [id number]: Final reports with documentation of one or more dose reduction techniques (e.g., Automated exposure control, adjustment of the mA and/or kV according to patient size, use of iterative reconstruction technique) TECHNICAL DOCUMENTATION: JOB ID: [id number] [employer]- All Rights Reserved Reading location - IP/workstation name: [email or web address]
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
[2019-04-18 17:13] LABS: ALANINE AMINOTRANSFERASE 41 U/L (9-52); ALBUMIN 4.2 g/dL (3.5-5.0); ALKALINE PHOSPHATASE 106 U/L (38-126); ANION GAP 11 (5-19); ASPARTATE AMINO TRANSFERASE 85 U/L (14-36); BILIRUBIN,DIRECT 0.3 mg/dL (0.0-0.4); BILIRUBIN,TOTAL 0.5 mg/dL (0.2-1.3); BLOOD UREA NITROGEN 20 mg/dL (7-20); CALCIUM 9.1 mg/dL (8.4-10.2); CARBON DIOXIDE 21 mmol/L (22-30); CHLORIDE 107 mmol/L (98-107); GLUCOSE 84 mg/dL (75-110); POTASSIUM 3.8 mmol/L (3.6-5.0); SODIUM 139.1 mmol/L (137-145); TOTAL PROTEIN 7.5 g/dL (6.3-8.2)
[2019-04-18 17:41] LABS: APPEARANCE,URINE SLIGHTLY-CLOUDY; BILIRUBIN,URINE NEGATIVE (NEGATIVE); GLUCOSE, URINE NEGATIVE (NEGATIVE); KETONES,URINE TRACE mg/dL (NEGATIVE); LEUKOCYTE ESTERASE,URINE NEGATIVE (NEGATIVE); NITRITE,URINE NEGATIVE (NEGATIVE); PROTEIN,URINE 30 mg/dL (NEGATIVE); URINE SPECIFIC GRAVITY 1.028; UROBILINOGEN,URINE NEGATIVE mg/dL (<2.0)
[2019-04-18 17:46] LABS: COLOR,URINE YELLOW
[2019-04-18 17:56] LABS: URINE BARBITURATES SCREEN NEGATIVE; URINE BENZODIAZEPINES SCREEN UNCONFIRMED POSITIVE; URINE COCAINE SCREEN UNCONFIRMED POSITIVE; URINE MARIJUANA (THC) SCREEN UNCONFIRMED POSITIVE; URINE METHADONE SCREEN NEGATIVE
[2019-04-18 18:10] LABS: URINE PHENCYCLIDINE SCREEN NEGATIVE
--- NOTE | 2019-04-19 05:01 | RADIOLOGY REPORT (SQ) ---
EXAM DESCRIPTION: XR RIBS BILATERAL WITH CHEST COMPLETED DATE/TME: 04/19/2019 04:07 CLINICAL HISTORY: 33 years, Female, Rib pain COMPARISON: None. NUMBER OF VIEWS: Four TECHNIQUE: AP view of the chest with bilateral views of the ribs. LIMITATIONS: None. FINDINGS: The lungs are clear. The heart is normal in size. There is no pneumothorax or pleural effusion. There are nondisplaced fractures involving the left seventh and eighth ribs anteriorly.. IMPRESSION: Nondisplaced left seventh and eighth rib fractures. copyright 2010 [employer]- All Rights Reserved
[2019-04-19] MEDS ORDERED: KETOROLAC TROMETHAMINE INJ/PF 30 MG/1 ML SDV IV ONE (05:38)
[2019-04-19 06:08] VITALS: BP 114/71
== END 2019-04-19 06:22 | disposition home or self-care (01) ==
LOC: ER 16:12
DX: S22.42XA Multiple fractures of ribs, left side, initial encounter for closed fracture (principal); T50.901A Poisoning by unspecified drugs, medicaments and biological substances, accidental (unintentional), initial encounter; F12.10 Cannabis abuse, uncomplicated; F11.10 Opioid abuse, uncomplicated; F19.10 Other psychoactive substance abuse, uncomplicated; X58.XXXA Exposure to other specified factors, initial encounter; J45.909 Unspecified asthma, uncomplicated
CPT/HCPCS: 99284; 96372; 96374; 36415; 82962; 80307 ×2; 85025; 81025; 80053; 81001; 71111; 70450; J1885; J2310

== ENCOUNTER → 2019-07-17 | Outpatient (CLI) | payer MEDICAID ==
--- NOTE | 2019-07-17 14:15 | RADIOLOGY REPORT (SQ) ---
EXAM DESCRIPTION: WRIST RIGHT 3 VIEWS COMPLETED DATE/TIME: 07/17/2019 11:11 am REASON FOR STUDY: RT WRIST PAIN M25.531 PAIN IN RIGHT WRIST COMPARISON: None. NUMBER OF VIEWS: Three views. TECHNIQUE: AP, lateral, and oblique radiographic images acquired of the right wrist. LIMITATIONS: None. FINDINGS: MINERALIZATION: Normal. BONES: No acute fracture or dislocation. Old fracture of the 4th metacarpal. No worrisome bone lesi ons. Normal alignment. SOFT TISSUES: No soft tissue swelling. No foreign body. OTHER: No other significant finding. IMPRESSION: NEGATIVE STUDY OF THE RIGHT WRIST. NO RADIOGRAPHIC EVIDENCE OF ACUTE INJURY. TECHNICAL DOCUMENTATION: JOB ID: [id number] [email or web address]- All Rights Reserved Reading location - IP/workstation name: [email or web address]
== END ==
LOC: OD 10:57
PROVIDERS: ATTEND Nurse Practitioner Family
DX: M25.531 Pain in right wrist (principal)

== ENCOUNTER 2019-12-08 18:25 | Emergency (ER) | payer MEDICAID ==
[2019-12-08 18:43] VITALS: BP 132/82
--- NOTE | 2019-12-08 18:58 | ER Document Report ---
ED Medical Screen (RME) - General Chief Complaint: Abscess Stated Complaint: ABSCESS/LEFT WRIST Time Seen by Provider: 12/08/19 18:44 Primary Care Provider: ROSAS HUBER FNP-C [Primary Care Provider] - Follow up as needed Mode of Arrival: Ambulatory Information source: Patient Notes: 34-year-old female patient presenting to the emergency department 3-day history of chest pain. Patient reports pain in the center of her chest, she is also states sometimes she has a racing heart. She is also here due to an abscess on her left wrist. She denies any current IV drug abuse but reports a history of drug use, states she has been clean for 1 year. Large fluctuant area noted to left wrist. I have greeted and performed a rapid initial assessment of this patient. A comprehensive ED assessment and evaluation of the patient, analysis of test results and completion of the medical decision making process will be conducted by additional ED providers. I have specifically instructed the patient or family members with the patient to immediately return to any nursing staff should anything change in the patient's condition or with their chief complaint. TRAVEL OUTSIDE OF THE [place] IN LAST 30 DAYS: No - Related Data Allergies/Adverse Reactions: No Known Allergies Allergy (Verified 12/04/18 09:46) Home Medications: Klonipin, Adderral, Topomax, Lexapro, Gabapentin Past Medical History - Social History Drug Abuse: Other Pulmonary Medical History: Reports: Hx Asthma Renal/ Medical History: Denies: Hx Peritoneal Dialysis Musculoskeltal Medical History: Reports Hx Musculoskeletal Trauma Psychiatric Medical History: Reports: Hx Anxiety, Hx Depression Past Surgical History: Reports: Hx Orthopedic Surgery - jaw - Immunizations Immunizations up to date: No Hx Diphtheria, Pertussis, Tetanus Vaccination: No - unknown Physical Exam - Vital signs Vitals: Temp Pulse Resp BP Pulse Ox 98.1 F 95 16 132/82 H 98 12/08/19 18:42 12/08/19 18:42 12/08/19 18:42 12/08/19 18:42 12/08/19 18:42 Course - Vital Signs Vital signs: Temp Pulse Resp BP Pulse Ox 98.1 F 95 16 132/82 H 98 12/08/19 18:42 12/08/19 18:42 12/08/19 18:42 12/08/19 18:42 12/08/19 18:42 Doctor's Discharge - Discharge Referrals: ROSAS HUBER, [facility]-C [Primary Care Provider] - Follow up as needed
--- NOTE | 2019-12-08 20:05 | RADIOLOGY REPORT (SQ) ---
EXAM DESCRIPTION: CHEST 2 VIEWS COMPLETED DATE/TIME: 12/08/2019 6:44 pm REASON FOR STUDY: chest pain COMPARISON: None. EXAM PARAMETERS: NUMBER OF VIEWS: two views TECHNIQUE: Digital Frontal and Lateral radiographic views of the chest acquired. RADIATION DOSE: NA LIMITATIONS: none FINDINGS: LUNGS AND PLEURA: No opacities, masses or pneumothorax. No pleural effusion. MEDIASTINUM AND HILAR STRUCTURES: No masses or contour abnormalities. HEART AND VASCULAR STRUCTURES: Heart normal size. No evidence for failure. BONES: No acute findings. HARDWARE: None in the chest. OTHER: No other significant finding. IMPRESSION: NO ACUTE RADIOGRAPHIC FINDING IN THE CHEST. TECHNICAL DOCUMENTATION: JOB ID: [id number] 2010 [employer]- All Rights Reserved Reading location - IP/workstation name: [email or web address]
[2019-12-08 20:53] LABS: ABSOLUTE EOSINOPHILS # (AUTO) 0.3 10^3/uL (0.0-0.6); ABSOLUTE LYMPHOCYTES (AUTO) 2.1 10^3/uL (0.5-4.7); ABSOLUTE MONOCYTES (AUTO) 0.5 10^3/uL (0.1-1.4); ABSOLUTE NEUT (AUTO) 2.8 10^3/uL (1.7-8.2); BASOPHILS % (AUTO) 0.7 % (0-2); EOSINOPHILS % (AUTO) 5.2 % (0-6); HEMATOCRIT 37.9 % (36.0-47.0); HEMOGLOBIN 12.8 g/dL (12.0-15.5); LYMPHOCYTES % (AUTO) 36.8 % (13-45); MEAN CORPUSCULAR HEMOGLOBIN 31.6 pg (27.0-33.4); MEAN CORPUSCULAR HGB CONC 33.6 g/dL (32.0-36.0); MEAN CORPUSCULAR VOLUME 94 fl (80-97); MONOCYTES % (AUTO) 8.4 % (3-13); PLATELET COUNT 263 10^3/uL (150-450); RED BLOOD COUNT 4.04 10^6/uL (3.72-5.28); RED CELL DISTRIBUTION WIDTH 13.8 % (11.5-14.0); SEGMENTED NEUTROPHILS % (AUTO) 48.9 % (42-78); TOTAL CELLS COUNTED % (AUTO) 100 %; WHITE BLOOD COUNT 5.7 10^3/uL (4.0-10.5)
[2019-12-08 21:08] LABS: ALBUMIN 3.8 g/dL (3.5-5.0); ALKALINE PHOSPHATASE 102 U/L (38-126); ANION GAP 5 (5-19); ASPARTATE AMINO TRANSFERASE 25 U/L (14-36); BILIRUBIN,TOTAL 0.2 mg/dL (0.2-1.3); BLOOD UREA NITROGEN 11 mg/dL (7-20); CALCIUM 9.1 mg/dL (8.4-10.2); CARBON DIOXIDE 26 mmol/L (22-30); CHLORIDE 108 mmol/L (98-107); GLUCOSE 79 mg/dL (75-110); POTASSIUM 3.8 mmol/L (3.6-5.0); TOTAL PROTEIN 6.9 g/dL (6.3-8.2)
[2019-12-08] MEDS ORDERED: IPRATROPIUM/ALBUTEROL 0.5-2.5 MG/3 ML AMPUL NEB ONE (21:13)
[2019-12-08] MEDS ORDERED: LIDOCAINE 4% CREAM 5 GM TUBE TP ONE (21:13)
[2019-12-08] MEDS ORDERED: CIPROFLOXACIN HCL/DEXAMETH OTIC DROP 7.5 ML AD ONE (21:14)
[2019-12-08] MEDS ORDERED: OXYCODONE-ACETAMINOPHEN 5-325 MG TABLET PO ONE (21:17)
[2019-12-08] MEDS ORDERED: PROMETHAZINE HCL 25 MG TABLET PO ONE (21:17)
--- NOTE | 2019-12-08 21:18 | ER Document Report ---
ED General - General Chief Complaint: Abscess Stated Complaint: ABSCESS/LEFT WRIST Time Seen by Provider: 12/08/19 18:44 Primary Care Provider: ROSAS HUBER FNP-C [Primary Care Provider] - Follow up in 3-5 days Mode of Arrival: Ambulatory Notes: Patient is a 34-year-old female that comes emergency department with multiple complaints. Primary complaint is an abscess on her left wrist which has been there for the last several days, worsening, and has become more erythematous and tender. She does have a history of IV drug abuse but she denies IV drug abuse for the past year. Her tetanus is up-to-date. She denies fevers, chills, nausea, vomiting. Second complaint is intermittent palpitations, tightness in the chest, and pain in the chest for the past 3 days. She also admits to some wheezing. She does have a history of asthma. She does smoke. Final complaint is ear pain, on both sides, worse on the right. She denies hearing loss, congestion, headache. Past medical history includes anxiety, depression, PTSD, she is on Klonopin, gabapentin, Topamax, Lexapro, Adderall. TRAVEL OUTSIDE OF THE [place] IN LAST 30 DAYS: No - Related Data Allergies/Adverse Reactions: No Known Allergies Allergy (Verified 12/04/18 09:46) Home Medications: Klonipin, Adderral, Topomax, Lexapro, Gabapentin Past Medical History - General Information source: Patient - Social History Smoking Status: Current Every Day Smoker Drug Abuse: Other Family History: Reviewed & Not Pertinent Patient has suicidal ideation: No Patient has homicidal ideation: No Pulmonary Medical History: Reports: Hx Asthma Renal/ Medical History: Denies: Hx Peritoneal Dialysis Musculoskeletal Medical History: Reports Hx Musculoskeletal Trauma Psychiatric Medical History: Reports: Hx Anxiety, Hx Depression Past Surgical History: Reports: Hx Orthopedic Surgery - jaw - Immunizations Immunizations up to date: No Hx Diphtheria, Pertussis, Tetanus Vaccination: No - unknown Review of Systems - Review of Systems Constitutional: See HPI EENT: See HPI Cardiovascular: See HPI Respiratory: See HPI Gastrointestinal: No symptoms reported Genitourinary: No symptoms reported Female Genitourinary: No symptoms reported Musculoskeletal: See HPI Skin: See HPI Hematologic/Lymphatic: No symptoms reported Neurological/Psychological: No symptoms reported Physical Exam - Vital signs Vitals: Temp Pulse Resp BP Pulse Ox 98.1 F 95 16 132/82 H 98 12/08/19 18:42 12/08/19 18:42 12/08/19 18:42 12/08/19 18:42 12/08/19 18:42 - Notes Notes: GENERAL: Alert, interacts well. No acute distress. HEAD: Normocephalic, atraumatic. EYES: Pupils equal, round, and reactive to light. Extraocular movements intact. ENT: Oral mucosa moist, tongue midline. Oropharynx unremarkable. Airway patent. Nares patent, no nasal septal hematoma, TM's intact. There is erythema and tenderness of both ear canals, worse on the right, tragus tender bilaterally. Mastoids normal. Otherwise unremarkable. NECK: Full range of motion. Supple. Trachea midline. LUNGS: Faint expiratory wheezes, no tachypnea, no respiratory distress. Otherwise unremarkable. HEART: Regular rate and rhythm. No murmur ABDOMEN: Soft, non-tender. Non-distended. Bowel sounds present in all 4 quadrants. GENITOURINARY: Deferred EXTREMITIES: There is a large fluctuant area over the left dorsal wrist just prior to the head of the ulna, however there is normal range of motion of the wrist, there is no tenderness with palpation over the wrist, normal hand exam, normal distal neurovascular exam. Normal upper extremity otherwise with no st reaking or notable cellulitis. BACK: no cervical, thoracic, lumbar midline tenderness. No saddle anesthesia, normal distal neurovascular exam. Moves all extremities in full range of motion. NEUROLOGICAL: Alert and oriented x3. Normal speech. Cranial nerves II through XII grossly intact. PSYCH: Normal affect, normal mood. SKIN: Warm, dry, normal turgor. No rashes or lesions noted. Course - Re-evaluation Re-evalutation: EKG unremarkable with no T wave inversions or ST segment changes in consecutive leads, normal axis, no signs of pericarditis, QTC unremarkable. Chest x-ray negative. Troponin negative. Patient mainly reporting palpitations, she had wheezing on initial exam and after DuoNeb treatment wheezing resolved and symptoms in her chest resolved. Suspect this is respiratory. I also advised that her palpitations could be secondary to Adderall use. Very low suspicion of acute intrathoracic etiology. No fever. Patient has otitis externa, given Ciprodex drops for this. ENT unremarkable otherwise. CBC, chemistry unremarkable. Patient has obvious fluctuant abscess, patient actually tolerated the drainage of this extremely well, very large amount of purulent drainage was obtained. There is no significant surrounding cellulitis however. She was placed on Bactrim for this. Provided with albuterol for wheezing, discussed care of the abscess, follow-up, return precautions. Patient states appreciation and agreement. Stable and well-appearing at time of discharge. - Vital Signs Vital signs: Temp Pulse Resp BP Pulse Ox 98.1 F 95 16 132/82 H 98 12/08/19 18:42 12/08/19 18:42 12/08/19 18:42 12/08/19 18:42 12/08/19 18:42 - Laboratory Result Diagrams: 12/08/19 20:18 12/08/19 20:18 Laboratory results interpreted by me: 12/08/19 20:18 Chloride 108 H Procedures - Incision and Drainage Left forearm Type: Single Anesthetic type: Other - LMX I&D procedure: Shurclens applied, Sterile dressing applied Incision Method: Incision made by scalpel Amount/type of drainage: About 10 cc of purulent drainage Notes: Area was cleaned with surgical cleanser, LMX was used for anesthesia and actually gave good results. I aspirated about 1.5 cc out first with a 22-gauge needle, after the pressure had been taken off I made an incision with a scalpel and expressed about 10 cc total of purulent drainage. This was cleaned, explored, dressed. Discharge - Discharge Clinical Impression: Abscess, Palpitations, Wheezing Ear pain Qualifiers: Laterality: bilateral Qualified Code(s): H92.03 - Otalgia, bilateral Chest pain Qualifiers: Chest pain type: unspecified Qualified Code(s): R07.9 - Chest pain, unspecified Condition: Stable Disposition: HOME, SELF-CARE Additional Instructions: The abscess has been drained, keep clean, clean with soap and water, keep absorbing dressing over the area, take the antibiotic as prescribed. Use the eardrops as prescribed, 4 drops twice a day in each ear for 7 days. Use the inhaler if needed, stop smoking. Your work-up for chest pain and palpitations reassuring, I suspect this is from wheezing and upper respiratory inflammation. Follow-up with primary care. Return if you worsen including developing or spreading redness along your arm, fever, difficulty breathing, or any other concerning symptoms. Prescriptions: Sulfamethoxazole/Trimethoprim [Bactrim Ds Tablet] 1 each PO BID #14 tablet Albuterol Sulfate [Proair HFA Inhalation Aerosol 8.5 gm MDI] 2 puff IH Q4H PRN #1 mdi PRN Reason: Referrals: ROSAS HUBER FNP-C [Primary Care Provider] - Follow up in 3-5 days
--- NOTE | 2019-12-08 21:56 | EKG REPORT ---
SEVERITY:- NORMAL ECG - SINUS RHYTHM : Confirmed by: Glen Villalpando 08-Dec-2019 21:56:20
[2019-12-08] MEDS ORDERED: SULFAMETHOXAZOLE/TRIMETHOPRIM 800-160 MG TABLET PO ONE (22:59)
[2019-12-08] MEDS ORDERED: HYDROCODONE/ACETAMINOPHEN 5-325 MG (6 TAB/ER DISP) PO PRN (22:59)
== END 2019-12-08 23:39 | disposition home or self-care (01) ==
LOC: ER 18:25
PROC: 0H9EXZZ Drainage of Left Lower Arm Skin, External Approach (ICD-10-PCS; principal; 2019-12-08)
DX: L02.414 Cutaneous abscess of left upper limb (principal); R07.9 Chest pain, unspecified; H92.03 Otalgia, bilateral; R00.2 Palpitations; J45.909 Unspecified asthma, uncomplicated; F17.200 Nicotine dependence, unspecified, uncomplicated; Z79.899 Other long term (current) drug therapy
CPT/HCPCS: 93005; 94640; 99284; 36415; 84703; 85025; 80053; 84484; 71046; 93010; 10060; J3490 ×4; J7620

== ENCOUNTER 2019-12-27 10:08 | Emergency (ER) | payer MEDICAID ==
[2019-12-27 10:15] VITALS: BP 133/84
--- NOTE | 2019-12-27 11:01 | ER Document Report ---
ED Medical Screen (RME) - General Chief Complaint: Leg Pain Stated Complaint: LEG NUMBNESS Time Seen by Provider: 12/27/19 10:52 Primary Care Provider: ROSAS HUBER FNP-C [Primary Care Provider] - Follow up as needed Mode of Arrival: Wheelchair Information source: Patient Notes: 34-year-old female patient presents the emergency department chief complaint of right foot numbness. She states this is been going on for 5 days. She states she cannot use her right foot at all. She does have a dorsalis pedis pulse that is palpable. Her foot is cool. Upgraded to GRAY 2, taken straight to a room. I have greeted and performed a rapid initial assessment of this patient. A comprehensive ED assessment and evaluation of the patient, analysis of test results and completion of the medical decision making process will be conducted by additional ED providers. I have specifically instructed the patient or family members with the patient to immediately return to any nursing staff should anything change in the patient's condition or with their chief complaint. TRAVEL OUTSIDE OF THE [place] IN LAST 30 DAYS: No - Related Data Allergies/Adverse Reactions: No Known Allergies Allergy (Verified 12/04/18 09:46) Past Medical History Pulmonary Medical History: Reports: Hx Asthma Renal/ Medical History: Denies: Hx Peritoneal Dialysis Musculoskeltal Medical History: Reports Hx Musculoskeletal Trauma Psychiatric Medical History: Reports: Hx Anxiety, Hx Depression Past Surgical History: Reports: Hx Orthopedic Surgery - jaw - Immunizations Immunizations up to date: No Hx Diphtheria, Pertussis, Tetanus Vaccination: No - unknown Physical Exam - Vital signs Vitals: Temp Pulse Resp BP Pulse Ox 98.6 F 109 H 16 133/84 H 97 12/27/19 10:13 12/27/19 10:13 12/27/19 10:13 12/27/19 10:13 12/27/19 10:13 Course - Vital Signs Vital signs: Temp Pulse Resp BP Pulse Ox 98.6 F 109 H 16 133/84 H 97 12/27/19 10:13 12/27/19 10:13 12/27/19 10:13 12/27/19 10:13 12/27/19 10:13 Doctor's Discharge - Discharge Referrals: ROSAS HUBER FNP-C [Primary Care Provider] - Follow up as needed
--- NOTE | 2019-12-27 12:28 | ER Document Report ---
Doctor's Note Notes: 12/27/19 12:27 Cardiovascular tach called, venous Dopplers negative. There is also good arterial flow through both feet.
--- NOTE | 2019-12-27 12:53 | RADIOLOGY REPORT (SQ) ---
EXAM DESCRIPTION: VENOUS UNILATERAL LOWER COMPLETED DATE/TIME: 12/27/2019 12:30 pm REASON FOR STUDY: right foot cold, leg pain COMPARISON: None. TECHNIQUE: Dynamic and static jolley scale and color images acquired of the right leg venous system. S elected spectral images acquired with additional compression and augmentation maneuvers. The contrala teral common femoral vein and saphenofemoral junction were also imaged. Images stored on PACS. LIMITATIONS: None. FINDINGS: COMMON FEMORAL: Normal phasicity, compression and augmentation. No visualized echogenic ma terial on jolley scale. No defects on color images. FEMORAL: Normal compression and augmentation. No visualized echogenic material on jolley scale. No defe cts on color images. POPLITEAL: Normal compression, augmentation. No visualized echogenic material on jolley scale. No defec ts on color images. CALF VESSELS: Normal compression, augmentation. No visualized echogenic material on jolley scale. No de fects on color images. GSV and SSV: Normal compression, augmentation. No visualized echogenic material on jolley scale. No def ects on color images. ANY DEEP VENOUS INSUFFICIENCY: Not evaluated. ANY EVIDENCE OF POPLITEAL CYST: No. OTHER: Triphasic flow is seen in the dorsalis pedis artery. CONTRALATERAL COMMON FEMORAL VEIN AND SAPHENOFEMORAL JUNCTION: Normal phasicity, compression and augmentation. No visualized echogenic material on jolley scale. No de fects on color images. IMPRESSION: NO EVIDENCE DVT OR SVT IN THE RIGHT LEG. TECHNICAL DOCUMENTATION: JOB ID: [id number] 2010 [employer]- All Rights Reserved Reading location - IP/workstation name: [email or web address]
--- NOTE | 2019-12-27 13:53 | RADIOLOGY REPORT (SQ) ---
EXAM DESCRIPTION: FOOT RIGHT COMPLETE; ANKLE RIGHT COMPLETE COMPLETED DATE/TIME: 12/27/2019 1:32 pm; 12/27/2019 1:33 pm REASON FOR STUDY: injury/pain COMPARISON: None. NUMBER OF VIEWS: Six views. TECHNIQUE: AP, lateral and oblique radiographic images acquired of the right ankle and right foot. LIMITATIONS: Jewelry overlying 2nd phalanx. FINDINGS: MINERALIZATION: Normal. BONES: No acute fracture or dislocation. No worrisome bone lesions. JOINTS: No effusions. SOFT TISSUES: No soft tissue swelling. No foreign body. OTHER: No other significant finding. IMPRESSION: No fracture. TECHNICAL DOCUMENTATION: JOB ID: [id number] 2010 [employer]- All Rights Reserved Reading location - IP/workstation name: [email or web address]
--- NOTE | 2019-12-27 13:53 | RADIOLOGY REPORT (SQ) ---
EXAM DESCRIPTION: FOOT RIGHT COMPLETE; ANKLE RIGHT COMPLETE COMPLETED DATE/TIME: 12/27/2019 1:32 pm; 12/27/2019 1:33 pm REASON FOR STUDY: injury/pain COMPARISON: None. NUMBER OF VIEWS: Six views. TECHNIQUE: AP, lateral and oblique radiographic images acquired of the right ankle and right foot. LIMITATIONS: Jewelry overlying 2nd phalanx. FINDINGS: MINERALIZATION: Normal. BONES: No acute fracture or dislocation. No worrisome bone lesions. JOINTS: No effusions. SOFT TISSUES: No soft tissue swelling. No foreign body. OTHER: No other significant finding. IMPRESSION: No fracture. TECHNICAL DOCUMENTATION: JOB ID: [id number] 2010 [employer]- All Rights Reserved Reading location - IP/workstation name: [email or web address]
[2019-12-27 14:31] LABS: ABSOLUTE BASOPHILS # (AUTO) 0.1 10^3/uL (0.0-0.2); ABSOLUTE EOSINOPHILS # (AUTO) 0.1 10^3/uL (0.0-0.6); ABSOLUTE LYMPHOCYTES (AUTO) 1.8 10^3/uL (0.5-4.7); ABSOLUTE MONOCYTES (AUTO) 0.4 10^3/uL (0.1-1.4); ABSOLUTE NEUT (AUTO) 1.6 10^3/uL (1.7-8.2); BASOPHILS % (AUTO) 1.3 % (0-2); EOSINOPHILS % (AUTO) 3.7 % (0-6); HEMATOCRIT 37.2 % (36.0-47.0); HEMOGLOBIN 12.4 g/dL (12.0-15.5); LYMPHOCYTES % (AUTO) 46.4 % (13-45); MEAN CORPUSCULAR HEMOGLOBIN 31.7 pg (27.0-33.4); MEAN CORPUSCULAR HGB CONC 33.4 g/dL (32.0-36.0); MEAN CORPUSCULAR VOLUME 95 fl (80-97); MONOCYTES % (AUTO) 9.2 % (3-13); PLATELET COUNT 217 10^3/uL (150-450); RED BLOOD COUNT 3.93 10^6/uL (3.72-5.28); RED CELL DISTRIBUTION WIDTH 14.1 % (11.5-14.0); SEGMENTED NEUTROPHILS % (AUTO) 39.4 % (42-78); TOTAL CELLS COUNTED % (AUTO) 100 %
[2019-12-27] MEDS ORDERED: KETOROLAC TROMETHAMINE INJ/PF 30 MG/1 ML SDV IV ONE (14:53)
[2019-12-27 14:55] LABS: ALBUMIN 3.6 g/dL (3.5-5.0); ALCOHOL < 10 mg/dL (NONE DETECTED); ALKALINE PHOSPHATASE 110 U/L (38-126); ASPARTATE AMINO TRANSFERASE 54 U/L (14-36); BILIRUBIN,TOTAL 0.1 mg/dL (0.2-1.3); BLOOD UREA NITROGEN 13 mg/dL (7-20); C-REACTIVE PROTEIN < 5.0 mg/L (<10.0); CALCIUM 8.9 mg/dL (8.4-10.2); CARBON DIOXIDE 26 mmol/L (22-30); CHLORIDE 108 mmol/L (98-107); GLUCOSE 94 mg/dL (75-110); TOTAL PROTEIN 6.6 g/dL (6.3-8.2)
[2019-12-27 15:00] LABS: ANION GAP 4 (5-19)
--- NOTE | 2019-12-27 15:00 | ER Document Report ---
ED General - General Chief Complaint: Leg Pain Stated Complaint: LEG NUMBNESS Time Seen by Provider: 12/27/19 10:52 Primary Care Provider: ROSAS HUBER FNP-C [Primary Care Provider] - Follow up as needed Mode of Arrival: Wheelchair TRAVEL OUTSIDE OF THE [place] IN LAST 30 DAYS: No - HPI Notes: Chief complaint: Numbness of right foot and ankle 34-year-old female states that she fell in the shower at home approximately 5 days ago and twisted her ankle. She states that since that time she has had persistent numbness of the sole of the foot and finds it nearly impossible to walk. She also says she has had paresthesias extending from mid lower leg distally on the right side. Patient says this area is constantly painful. She has not sought medical attention until today reportedly because she does not have a primary care physician. She indicates that she has been "buying some pain pills on the street" to treat herself with this. Patient is on multiple psychotropic medications reporting numerous behavioral diagnoses including bipolar disorder, PTSD, chronic anxiety and chronic depression. Patient also indicates that she has had past problems with IV drug abuse but denies using any opiates in over a year. We discussed possible need for urine testing, however, she states that "the urine will undoubtedly be dirty". Patient denies fever. She does, however, report chronic low back pain. She also indicates that she has problems with her right upper extremity but says this is been going on for more than 6 months and indicates that she feels this is related to a tendon injury where she intentionally cut herself in the past. - Related Data Allergies/Adverse Reactions: No Known Allergies Allergy (Verified 12/04/18 09:46) Past Medical History - General Information source: Patient - Social History Smoking Status: Current Every Day Smoker Family History: Reviewed & Not Pertinent Patient has suicidal ideation: No Patient has homicidal ideation: No Pulmonary Medical History: Reports: Hx Asthma Renal/ Medical History: Denies: Hx Peritoneal Dialysis Musculoskeletal Medical History: Reports Hx Musculoskeletal Trauma Psychiatric Medical History: Reports: Hx Anxiety, Hx Attention Deficit Hyperactivity Disorder, Hx Bipolar Disorder, Hx Depression Past Surgical History: Reports: Hx Orthopedic Surgery - jaw - Immunizations Immunizations up to date: No Hx Diphtheria, Pertussis, Tetanus Vaccination: No - unknown Review of Systems - Review of Systems Notes: Constitutional: Negative for fever. HENT: Negative for sore throat. Eyes: Negative for visual changes. Cardiovascular: Negative for chest pain. Respiratory: Negative for shortness of breath. Gastrointestinal: Negative for abdominal pain, vomiting or diarrhea. Genitourinary: Negative for dysuria. Musculoskeletal: Chronic back pain. Skin: Negative for rash. Neurological: Negative for headaches. 10 point ROS negative except as marked above and in HPI. Physical Exam - Vital signs Vitals: Temp Pulse Resp BP Pulse Ox 98.6 F 109 H 16 133/84 H 97 12/27/19 10:13 12/27/19 10:13 12/27/19 10:13 12/27/19 10:13 12/27/19 10:13 - Notes Notes: GENERAL: Female patient appearing approximately stated age who is mildly disheveled and has slurred speech. SKIN: Good turgor no rashes. HEAD: Normocephalic atraumatic. EYES: PERRLA. EOMI. Conjunctivae and sclerae clear. EARS: CANALS AND TMS CLEAR. NOSE: CLEAR. MOUTH: Moist mucosa. Good dentition. No stridor or edema. No drooling. NECK: Supple. No masses or thyromegaly. No adenopathy. Carotids 2+ without bruits. No JVD. Throat: Clear. BACK: Symmetrical without tenderness. CHEST: Respirations unlabored. Breath sounds clear and symmetrical. HEART: Regular rhythm. No murmur gallop or rub. ABDOMEN: Soft nontender without masses, organomegaly or rebound. Bowel sounds normally active. No bruits. GENITALIA: Deferred. EXTREMITIES: Patient has some mild soft tissue swelling and tenderness over the lateral aspect of the right foot. She reports decreased sensation over the entire right foot and distal portion of the lower leg although when I manipulate these areas she complains of severe pain. No redness or warmth appreciated. Ligament stability of the ankle on the right is grossly intact. There is no palpable discontinuity over the Achilles tendon. Lemos test is negative no edema. No calf tenderness. Patient is unable to flex or extend at the ankle reporting muscular weakness although she seems to make some effort to do so when she complains of pain as I palpate over the lateral aspect of the foot. Cap refill less than 1.5 seconds. Dorsalis pedis and posterior tibial pulses 3+ and symmetrical. NEUROLOGICAL: GCS 15. Alert and oriented x3. Fluent speech. Cranial nerves II through XII intact. Normal tone. PSYCHIATRIC: Appropriate affect. Course - Re-evaluation Re-evalutation: I think this lady probably has a contusion of a peripheral nerve but she is high risk for spinal epidural abscess and does complain of some chronic low back pain and admits that she is used some intravenous drugs in the past although she denies doing this currently. She has a lot of tracks present. Her urine screen for drugs today is significantly positive for amphetamines cocaine and opiates. DVT study the right lower extremity was negative. Plain films of the ankle and foot are negative. Sed rate was only 10. C-reactive protein is still pending. I had ordered MRI of lumbar spine. The patient decided that she "just had to have a cigarette" and interestingly was able to get up and walk out of the department without assistance. She is signing out AMA. 12/27/19 16:33 - Vital Signs Vital signs: Temp Pulse Resp BP Pulse Ox 98.6 F 109 H 16 133/84 H 97 12/27/19 10:13 12/27/19 10:13 12/27/19 10:13 12/27/19 10:13 12/27/19 10:13 - Laboratory Result Diagrams: 12/27/19 14:16 12/27/19 14:16 Laboratory results interpreted by me: 12/27/19 12/27/19 14:16 14:16 RDW 14.1 H Lymph % (Auto) 46.4 H Absolute Neuts (auto) 1.6 L Seg Neutrophils % 39.4 L Chloride 108 H Anion Gap 4 L Total Bilirubin 0.1 L AST 54 H Discharge - Discharge Clinical Impression: Right leg pain, Polysubstance abuse Disposition: AGAINST MEDICAL ADVICE Referrals: ROSAS HUBER FNP-C [Primary Care Provider] - Follow up as needed
[2019-12-27 15:10] LABS: ERYTHROCYTE SEDIMENTATION RATE 10 mm/hr (0-20)
[2019-12-27 16:15] LABS: URINE BARBITURATES SCREEN NEGATIVE; URINE BENZODIAZEPINES SCREEN NEGATIVE; URINE METHADONE SCREEN NEGATIVE; URINE PHENCYCLIDINE SCREEN NEGATIVE
[2019-12-27 16:19] LABS: URINE AMPHETAMINES SCREEN UNCONFIRMED POSITIVE; URINE COCAINE SCREEN UNCONFIRMED POSITIVE
[2019-12-27 16:20] LABS: URINE MARIJUANA (THC) SCREEN UNCONFIRMED POSITIVE
[2019-12-27 17:11] LABS: APPEARANCE,URINE SLIGHTLY-CLOUDY; BILIRUBIN,URINE NEGATIVE (NEGATIVE); CALCIUM OXALATE CRYSTALS,URINE MODERATE /HPF; COLOR,URINE YELLOW; GLUCOSE, URINE NEGATIVE (NEGATIVE); KETONES,URINE NEGATIVE (NEGATIVE); LEUKOCYTE ESTERASE,URINE NEGATIVE (NEGATIVE); NITRITE,URINE NEGATIVE (NEGATIVE); PROTEIN,URINE 30 mg/dL (NEGATIVE); URINE SPECIFIC GRAVITY 1.021
== END 2019-12-27 16:10 | disposition left against medical advice (07) ==
LOC: ER 10:08
DX: M79.661 Pain in right lower leg (principal); M79.671 Pain in right foot; R20.0 Anesthesia of skin; W18.2XXA Fall in (into) shower or empty bathtub, initial encounter; Y92.002 Bathroom of unspecified non-institutional (private) residence as the place of occurrence of the external cause; F19.10 Other psychoactive substance abuse, uncomplicated; M79.89 Other specified soft tissue disorders; M54.5 Low back pain; G89.29 Other chronic pain; J45.909 Unspecified asthma, uncomplicated; F17.210 Nicotine dependence, cigarettes, uncomplicated; Z91.5 Personal history of self-harm; Z53.29 Procedure and treatment not carried out because of patient's decision for other reasons
CPT/HCPCS: 99284; 96374; 36415; 80307 ×2; 85025; 85652; 86140; 80053; 81001; 93971; 73610; 73630; J1885

== ENCOUNTER 2019-12-29 14:55 | Emergency (ER) | payer MEDICAID ==
--- NOTE | 2019-12-29 15:07 | ER Document Report ---
ED Medical Screen (RME) - General Chief Complaint: Back Pain Stated Complaint: BACK PAIN,LEG PAIN,SHAKINESS Time Seen by Provider: 12/29/19 15:04 Primary Care Provider: ROSAS HUBER FNP-C [Primary Care Provider] - Follow up as needed Information source: Patient TRAVEL OUTSIDE OF THE [place] IN LAST 30 DAYS: No - HPI Onset: Other - Numbness to right lower extremity patient states she was here yesterday and the doctor was can get an MRI however she left AMA she came back today because she would like to have that done. Onset/Duration: Waxing and waning Quality of pain: Achy, Burning Associated Symptoms: None Exacerbated by: Denies Relieved by: Denies - Related Data Allergies/Adverse Reactions: No Known Allergies Allergy (Verified 12/04/18 09:46) Past Medical History - General Information source: Patient Pulmonary Medical History: Reports: Hx Asthma Renal/ Medical History: Denies: Hx Peritoneal Dialysis Musculoskeltal Medical History: Reports Hx Musculoskeletal Trauma Psychiatric Medical History: Reports: Hx Anxiety, Hx Attention Deficit Hyperactivity Disorder, Hx Bipolar Disorder, Hx Depression Past Surgical History: Reports: Hx Orthopedic Surgery - jaw - Immunizations Immunizations up to date: No Hx Diphtheria, Pertussis, Tetanus Vaccination: No - unknown Physical Exam - Vital signs Vitals: Temp Pulse Resp BP Pulse Ox 98.6 F 123 H 18 126/65 H 97 12/29/19 14:58 12/29/19 14:58 12/29/19 14:58 12/29/19 14:58 12/29/19 14:58 - Back Back: Normal, Nontender - Neurological Neuro grossly intact: Yes Cognition: Normal Orientation: AAOx4 [place] Coma Scale Eye Opening: Spontaneous [place] Coma Scale Verbal: Oriented [place] Coma Scale Motor: Obeys Commands [place] Coma Scale Total: 15 Speech: Normal Motor strength normal: LUE, RUE, LLE, RLE Sensory: Normal Notes: Patient states she is got no loss of bowel or bladder function she is ambulatory with a rhythmic and deliberate gait she does have tingling down the right lower extremity. Course - Vital Signs Vital signs: Temp Pulse Resp BP Pulse Ox 98.6 F 123 H 18 126/65 H 97 12/29/19 14:58 12/29/19 14:58 12/29/19 14:58 12/29/19 14:58 12/29/19 14:58 Doctor's Discharge - Discharge Referrals: ROSAS HUBER FNP-C [Primary Care Provider] - Follow up as needed
[2019-12-29 16:08] LABS: APPEARANCE,URINE CLEAR; BILIRUBIN,URINE NEGATIVE (NEGATIVE); COLOR,URINE YELLOW; GLUCOSE, URINE NEGATIVE (NEGATIVE); KETONES,URINE TRACE mg/dL (NEGATIVE); LEUKOCYTE ESTERASE,URINE NEGATIVE (NEGATIVE); NITRITE,URINE NEGATIVE (NEGATIVE); PROTEIN,URINE NEGATIVE (NEGATIVE); UROBILINOGEN,URINE NEGATIVE mg/dL (<2.0)
[2019-12-29 16:24] LABS: URINE BARBITURATES SCREEN NEGATIVE; URINE BENZODIAZEPINES SCREEN NEGATIVE; URINE COCAINE SCREEN NEGATIVE; URINE METHADONE SCREEN NEGATIVE; URINE PHENCYCLIDINE SCREEN NEGATIVE
[2019-12-29 16:26] LABS: ALBUMIN 4.6 g/dL (3.5-5.0); ALKALINE PHOSPHATASE 128 U/L (38-126); ANION GAP 12 (5-19); ASPARTATE AMINO TRANSFERASE 50 U/L (14-36); BILIRUBIN,DIRECT 0.4 mg/dL (0.0-0.4); BILIRUBIN,TOTAL 0.5 mg/dL (0.2-1.3); BLOOD UREA NITROGEN 18 mg/dL (7-20); CALCIUM 9.4 mg/dL (8.4-10.2); CARBON DIOXIDE 22 mmol/L (22-30); CHLORIDE 106 mmol/L (98-107); GLUCOSE 82 mg/dL (75-110); POTASSIUM 4.1 mmol/L (3.6-5.0); TOTAL PROTEIN 8.2 g/dL (6.3-8.2)
[2019-12-29 16:34] LABS: URINE MARIJUANA (THC) SCREEN UNCONFIRMED POSITIVE
[2019-12-29] MEDS ORDERED: KETOROLAC TROMETHAMINE 60 MG/2 ML SDV IM ONE (16:55)
--- NOTE | 2019-12-29 17:01 | ER Document Report ---
ED General - General Chief Complaint: Low Back Pain Stated Complaint: BACK PAIN,LEG PAIN,SHAKINESS Time Seen by Provider: 12/29/19 15:04 Primary Care Provider: ROSAS HUBER FNP-C [Primary Care Provider] - Follow up as needed Mode of Arrival: Ambulatory Information source: Patient, [facility] Records TRAVEL OUTSIDE OF THE [place] IN LAST 30 DAYS: No - HPI Onset: Last week - 8 days ago Onset/Duration: Sudden, Worse Quality of pain: Burning, Throbbing Severity: Moderate Pain Level: 3 Associated symptoms: None Exacerbated by: Standing, Movement, Walking Relieved by: Denies Similar symptoms previously: Yes Recently seen / treated by doctor: Yes - Related Data Allergies/Adverse Reactions: No Known Allergies Allergy (Verified 12/04/18 09:46) Past Medical History - General Information source: Patient - Social History Smoking Status: Current Every Day Smoker Cigarette use (# per day): Yes Chew tobacco use (# tins/day): No Smoking Education Provided: Yes Frequency of alcohol use: Social Drug Abuse: Marijuana, Prescription drugs Family History: Reviewed & Not Pertinent Patient has suicidal ideation: No Patient has homicidal ideation: No Pulmonary Medical History: Reports: Hx Asthma Renal/ Medical History: Denies: Hx Peritoneal Dialysis Musculoskeletal Medical History: Reports Hx Musculoskeletal Trauma Psychiatric Medical History: Reports: Hx Anxiety, Hx Attention Deficit Hyperactivity Disorder, Hx Bipolar Disorder, Hx Depression - anxiety Past Surgical History: Reports: Hx Orthopedic Surgery - jaw - Immunizations Immunizations up to date: No Hx Diphtheria, Pertussis, Tetanus Vaccination: No - unknown Review of Systems - Review of Systems Notes: REVIEW OF SYSTEMS: CONSTITUTIONAL : Denies fever, chills, or sweats. Denies recent illness. EENT: Denies eye, ear, throat, or mouth pain or symptoms. Denies nasal or sinus congestion. CARDIOVASCULAR: Denies chest pain. RESPIRATORY: Denies cough, cold, or chest congestion. Denies shortness of breath, difficulty breathing, or wheezing. GASTROINTESTINAL: Denies abdominal pain. Denies nausea, vomiting, or diarrhea. Denies constipation. GENITOURINARY: Denies difficulty urinating, painful urination, burning, frequency, or blood in urine. MUSCULOSKELETAL: Per HPI SKIN: Denies rash or skin lesions. HEMATOLOGIC : Denies easy bruising or bleeding. NEUROLOGICAL: Denies altered mental status or loss of consciousness. Denies headache. Denies weakness or paralysis or loss of use of either side. Denies problems with gait or speech. Denies sensory or motor loss. PSYCHIATRIC: Denies suicidal or homicidal ideations 10 Systems are negative unless otherwise specified above Physical Exam - Vital signs Vitals: Temp Pulse Resp BP Pulse Ox 98.6 F 123 H 18 126/65 H 97 12/29/19 14:58 12/29/19 14:58 12/29/19 14:58 12/29/19 14:58 12/29/19 14:58 - Notes Notes: PHYSICAL EXAMINATION: GENERAL: Patient is a 34-year-old female presenting to the emergency department chief complaint of low back pain and foot pain she is in mild to moderate discomfort HEAD: Atraumatic, normocephalic. EYES: Pupils equal round and reactive to light, extraocular movements intact, sclera anicteric, conjunctiva are normal. ENT: nares patent, oropharynx clear without exudates. Moist mucous membranes. NECK: Normal range of motion, supple without lymphadenopathy, no appreciable JVD LUNGS: Lungs clear to auscultation bilaterally and equal. No wheezes rales or rhonchi. HEART: Regular rate and rhythm without murmurs ABDOMEN: Soft, nontender, normal bowel sounds. No guarding, no rebound. No masses appreciated. EXTREMITIES: Patient is hyperesthetic to the plantar aspect of the right foot there is no obvious lesions she has a good dorsalis pedis pulse there is no palpable cords to the calf. Back: Is tender to palpation worse to the right lower extremity NEUROLOGICAL: Patient does seem somewhat altered has mildly slurred speech and is sleepy but otherwise answers questions appropriately is alert to herself and date of . SKIN: Warm, Dry, and intact. Normal turgor, no rashes or lesions noted. Course - Re-evaluation Re-evalutation: 12/29/19 16:57 I have reviewed the patient's visit from yesterday her laboratory and radiologic results. A test will be ordered and subsequently a lumbar spine x-ray will be obtained to evaluate her low back. During intake with nurse in room patient is slightly slurring her words and appears to be altered. Urine drug screen does show marijuana and opiates. Patient was just seen yesterday and multiple radiologic studies were obtained. Patient was offered an MRI however was not able to stay to have the MRI performed for various reasons. That will not be available today. 12/29/19 19:19 At about 1815 I went to reevaluate the patient after looking at her x-rays and reading the official radiologic report. Nurse came to the room with me at that time the patient was ashen and breathing approximately 2 times per minute. I proceeded with doing a sternal rub twice and requested the nurse obtain Narcan. After the third sternal rub and verbalizing Narcan out loud the patient sat up and stated she did not want any Narcan. I asked the patient what medication she had taken because this is dramatic worsening of her condition since she was initially evaluated by myself and nursing staff. Patient states she only took 1 of the Percocets that she had bought off of somebody on the street. At this time I did ask security to the bedside and asked them to secure the patient's longing so this would not occur again. Patient was advised the seriousness of her condition. Patient once again refused taking Narcan even though every time she was not stimulated at all she began to become somnolent. Patient was asked name age and birthdate for which she was able to provide appropriate answers thus Narcan was not administered against her desire. I told the patient that if she had someone come to pick her up if she wanted to be discharged we could do that at this time. I did advise the patient that I believe what is causing her discomfort to her back hip and right lower extremity is secondary to sciatica. 1919 I went and spoke with nursing staff to evaluate the patient they state that the patient's friend did present to the hospital to secure her and take her home. I was never afforded an opportunity to discharge the patient or speak to her and her family friend. - Vital Signs Vital signs: Temp Pulse Resp BP Pulse Ox 98.6 F 97 16 120/86 H 99 12/29/19 14:58 12/29/19 19:05 12/29/19 19:05 12/29/19 19:05 12/29/19 19:05 - Laboratory Result Diagrams: 12/29/19 15:48 12/29/19 15:48 Laboratory results interpreted by me: 12/29/19 12/29/19 15:48 15:48 AST 50 H Alkaline Phosphatase 128 H Urine Ketones TRACE H - Diagnostic Test Radiology reviewed: Image reviewed, Reports reviewed Discharge - Discharge Clinical Impression: Right leg pain, Altered sensorium, Drug abuse Low back pain Qualifiers: Chronicity: unspecified Back pain laterality: right Sciatica presence: with sciatica Sciatica laterality: sciatica of right side Qualified Code(s): M54.41 - Lumbago with sciatica, right side Condition: Fair Disposition: HOME, SELF-CARE Referrals: ROSAS HUBER FNP-C [Primary Care Provider] - Follow up as needed
--- NOTE | 2019-12-29 18:00 | RADIOLOGY REPORT (SQ) ---
EXAM DESCRIPTION: L SPINE WHOLE COMPLETED DATE/TIME: 12/29/2019 5:49 pm REASON FOR STUDY: sciatica COMPARISON: L-spine radiographs 12/04/2018. NUMBER OF VIEWS: Five views including obliques. TECHNIQUE: AP, lateral, oblique, and sacral radiographic images acquired of the lumbar spine. LIMITATIONS: None. FINDINGS: MINERALIZATION: Normal. SEGMENTATION: Normal. No transitional anatomy. ALIGNMENT: Slight leftward curvature. VERTEBRAE: Small lower lumbar arm marginal osteophytes. Maintained height. No fracture or worrisome bone lesion. DISCS: Preserved height. No significant osteophytes or end plate irregularity. POSTERIOR ELEMENTS: Pedicles and facets are intact. No pars defect or posterior arch defects. HARDWARE: None in the spine. PARASPINAL SOFT TISSUES: Normal. PELVIS: Intact as visualized. No fractures or worrisome bone lesions. SI joints intact. OTHER: No other significant finding. IMPRESSION: Minimal lower lumbar degenerative changes. TECHNICAL DOCUMENTATION: JOB ID: [id number] 2010 [employer]- All Rights Reserved Reading location - IP/workstation name: [email or web address]
[2019-12-29 19:11] VITALS: BP 120/86
[2019-12-30] MEDS: NALOXONE HCL INJ/PF 0.4 MG/1 ML SDV ONE ×2 (09:55→09:57)
== END 2019-12-29 19:08 | disposition home or self-care (01) ==
LOC: ER 14:55
DX: M54.41 Lumbago with sciatica, right side (principal); F12.10 Cannabis abuse, uncomplicated; F17.210 Nicotine dependence, cigarettes, uncomplicated; R20.3 Hyperesthesia; R47.81 Slurred speech; J45.909 Unspecified asthma, uncomplicated
CPT/HCPCS: 99283; 96372; 81025; 80053; 81001; 80307; 72110; J1885

== ENCOUNTER 2019-12-31 21:19 | Emergency (ER) | payer MEDICAID ==
--- NOTE | 2019-12-31 21:46 | EKG REPORT ---
SEVERITY:- ABNORMAL ECG - SINUS RHYTHM FIRST DEGREE AV BLOCK BORDERLINE PROLONGED QT INTERVAL : Confirmed by: Mona Lopez MD 31-Dec-2019 21:45:39
--- NOTE | 2019-12-31 22:13 | RADIOLOGY REPORT (SQ) ---
EXAM DESCRIPTION: X-RAY CHEST- One View CLINICAL HISTORY: History of overdose. COMPARISON: There are very 2019 TECHNIQUE: Single view of the chest. FINDINGS: Low lung volumes with compressive changes. There are no discrete air space infiltrates, pneumothoraces or pleural effusions. The pulmonary vascularity is normal. The cardiomediastinal silhouette is normal in size. Osseous structures appear grossly intact. IMPRESSION: There are no acute lung parenchymal findings. Low lung volumes with compressive changes.
[2019-12-31 22:17] LABS: AMORPHOUS SEDIMENT,URINE TRACE /HPF; APPEARANCE,URINE CLOUDY; BILIRUBIN,URINE NEGATIVE (NEGATIVE); COLOR,URINE YELLOW; GLUCOSE, URINE NEGATIVE (NEGATIVE); KETONES,URINE NEGATIVE (NEGATIVE); LEUKOCYTE ESTERASE,URINE NEGATIVE (NEGATIVE); NITRITE,URINE NEGATIVE (NEGATIVE); PROTEIN,URINE NEGATIVE (NEGATIVE); URINE SPECIFIC GRAVITY 1.013; UROBILINOGEN,URINE NEGATIVE mg/dL (<2.0)
[2019-12-31 22:31] LABS: URINE AMPHETAMINES SCREEN UNCONFIRMED POSITIVE; URINE BARBITURATES SCREEN NEGATIVE; URINE BENZODIAZEPINES SCREEN NEGATIVE; URINE COCAINE SCREEN NEGATIVE; URINE MARIJUANA (THC) SCREEN UNCONFIRMED POSITIVE; URINE METHADONE SCREEN NEGATIVE; URINE PHENCYCLIDINE SCREEN NEGATIVE
[2019-12-31] MEDS: NORMAL SALINE 1000 ML 1,000 ML IV PRN (22:49)
[2019-12-31 23:06] LABS: ABSOLUTE EOSINOPHILS # (AUTO) 0.2 10^3/uL (0.0-0.6); ABSOLUTE LYMPHOCYTES (AUTO) 1.1 10^3/uL (0.5-4.7); ABSOLUTE MONOCYTES (AUTO) 0.5 10^3/uL (0.1-1.4); ABSOLUTE NEUT (AUTO) 1.7 10^3/uL (1.7-8.2); BASOPHILS % (AUTO) 0.9 % (0-2); EOSINOPHILS % (AUTO) 5.7 % (0-6); HEMATOCRIT 35.4 % (36.0-47.0); HEMOGLOBIN 12.1 g/dL (12.0-15.5); LYMPHOCYTES % (AUTO) 32.2 % (13-45); MEAN CORPUSCULAR HEMOGLOBIN 31.8 pg (27.0-33.4); MEAN CORPUSCULAR HGB CONC 34.2 g/dL (32.0-36.0); MEAN CORPUSCULAR VOLUME 93 fl (80-97); MONOCYTES % (AUTO) 13.4 % (3-13); PLATELET COUNT 182 10^3/uL (150-450); RED BLOOD COUNT 3.81 10^6/uL (3.72-5.28); RED CELL DISTRIBUTION WIDTH 14.1 % (11.5-14.0); SEGMENTED NEUTROPHILS % (AUTO) 47.8 % (42-78); TOTAL CELLS COUNTED % (AUTO) 100 %; WHITE BLOOD COUNT 3.6 10^3/uL (4.0-10.5)
--- NOTE | 2019-12-31 23:17 | ER Document Report ---
Entered by CANDI MOORE SCRIBE 12/31/19 2504 Acting as scribe for:OSCAR KU, DO ED General <SRIDHAR STROUD - Last Filed: 01/01/20 16:25> - General Cannot obtain history due to: Other - Possible Overdose TRAVEL OUTSIDE OF THE [place] IN LAST 30 DAYS: No <OSCAR KU - Last Filed: 01/02/20 03:11> - General Chief Complaint: Overdose Stated Complaint: POSSIBLE OVERDOSE Time Seen by Provider: 12/31/19 21:55 Primary Care Provider: ROSAS HUBER FNP-C [Primary Care Provider] - Follow up as needed Notes: This 34-year-old female presents to the emergency department via EMS after a possible overdose at [facility]. Patient was admitted to [facility] and reportedly pulled pills from her vagina and took them. It is unknown what or how much was taken. Patient is a known drug abuser. A full HPI is unobtainable due to patient's condition. (OSCAR KU) - Related Data Allergies/Adverse Reactions: No Known Allergies Allergy (Verified 12/04/18 09:46) Past Medical History - General Cannot obtain history due to: Other - Possible Overdose - Social History Smoking Status: Current Every Day Smoker Family History: Reviewed & Not Pertinent Pulmonary Medical History: Reports: Hx Asthma Musculoskeletal Medical History: Reports Hx Musculoskeletal Trauma Psychiatric Medical History: Reports: Hx Anxiety, Hx Attention Deficit Hyperactivity Disorder, Hx Bipolar Disorder, Hx Depression - anxiety Past Surgical History: Reports: Hx Orthopedic Surgery - jaw - Immunizations Immunizations up to date: No Hx Diphtheria, Pertussis, Tetanus Vaccination: No - unknown <OSCAR KU - Last Filed: 01/02/20 03:11> Review of Systems - Review of Systems -: Yes ROS unobtainable due to patient's medical condition <OSCAR KU - Last Filed: 01/02/20 03:11> Physical Exam <OSCAR KU - Last Filed: 01/02/20 03:11> - Vital signs Vitals: Temp Pulse Resp BP Pulse Ox 95.8 F L 70 18 112/76 96 12/31/19 21:21 12/31/19 21:21 12/31/19 21:21 12/31/19 21:21 12/31/19 21:21 - Notes Notes: Physical Exam: General: Unresponsive with normal vital signs, arouses to painful stimuli. HEENT: Normocephalic. Atraumatic. PERRL. Extraocular movements intact. Oropharynx clear. Neck: Supple. Non-tender. Respiratory: No respiratory distress. Clear and equal breath sounds bilaterally. Cardiovascular: Regular rate and rhythm. Abdominal: Obese. Non-tender. No distension. Normal Bowel Sounds. Back: No gross abnormalities. Extremities: Moves all four extremities. Upper extremities: Normal inspection. Normal ROM. Lower extremities: Air cast with ivtete wrap underneath on right ankle. No edema. Normal ROM. Neurological: Normal cognition. AAOx4. Normal speech. Psychological: Normal affect. Normal Mood. Skin: Warm. Dry. Normal color. (OSCAR KU) Course - Laboratory Result Diagrams: 12/31/19 22:49 12/31/19 22:49 <SRIDHAR STROUD - Last Filed: 01/01/20 16:25> - Laboratory Result Diagrams: 12/31/19 22:49 12/31/19 22:49 - EKG Interpretation by Me EKG shows normal: Sinus rhythm Rate: Normal Rhythm: NSR - NSR Nl Arnett [address] elevation or depression my interpretation. <OSCAR KU - Last Filed: 01/02/20 03:11> - Vital Signs Vital signs: Temp Pulse Resp BP Pulse Ox 97.7 F 82 18 100/59 L 99 01/01/20 21:48 01/01/20 21:48 01/01/20 21:48 01/01/20 21:48 01/01/20 21:48 - Laboratory Laboratory results interpreted by me: 12/31/19 12/31/19 12/31/19 21:34 22:49 22:49 WBC 3.6 L Hct 35.4 L RDW 14.1 H Lipscomb % (Auto) 13.4 H BUN 21 H Glucose 122 H POC Glucose 149 H Creatine Kinase 202 H Acetaminophen < 10 L Discharge <SRIDHAR STROUD - Last Filed: 01/01/20 16:25> <OSCAR KU - Last Filed: 01/02/20 03:11> - Discharge Clinical Impression: Drug abuse Overdose Qualifiers: Encounter type: initial encounter Injury intent: intentional self-harm Qualified Code(s): T50.902A - Poisoning by unspecified drugs, medicaments and biological substances, intentional self-harm, initial encounter Condition: Good Disposition: HOME, SELF-CARE Additional Instructions: You have been evaluated by both medical and behavioral health teams for an overdose and have been deemed appropriate for discharge. While in the emergency department you received the following services: Medical screening and assessment, nursing services, dietary services, pharmacological services, one-on-one counseling and/or psychotherapy, environmental services, and continuous observation by a patient environmental health and safety leader. You have been provided with a mental health resource list. You have also been provided with a substance abuse treatment resource list. You are highly encouraged to follow up with a mental health provider for mental health services and substance abuse treatment. The contact information for [facility] has been provided. You have identified wanting to return to [facility] for continued voluntary treatment. Behavior health team has confirmed your bed is still available. NARCOTIC / OPIOD ABUSE: Narcotics and opiods are pain-relieving drugs that are often abused. They are addicting. Narcotics cause euphoria, but it often takes increasing amounts to "feel good" and avoid withdrawal symptoms. Overdose of narcotics causes small pupils, coma, and decreased breathing. It's a common cause of . Purity of street narcotics is unpredictable. Injection of narcotics is risky for abscesses, endocarditis (heart infection), pneumonia, and AIDS. Withdrawal from narcotics causes goose bumps, watery mouth, sweating, nasal congestion, muscle aches, abdominal cramps, vomiting, and diarrhea. There's often restlessness and confusion. Treatment programs are available, but you must make the decision to quit. Medication (such as clonidine) can be prescribed to control the symptoms of withdrawal. AMPHETAMINE / METHAMPHETAMINE ABUSE: Amphetamines are addicting stimulants. Amphetamines overstimulate the nervous system and give a false feeling of power and mastery. These drugs may be obtain ed as prescription pills for weight loss, narcolepsy, or attention-deficit disorder. More often they're bought as an illegal street drug, methamphetamine (crank, crystal, speed). Using amphetamines repeatedly can lead to serious medical problems including malnutrition, severe depression, and paranoia. It can take increasing amounts to feel good. Eventually, there will be a "burn out." When you go off amphetamines there is a period of depression that may last for weeks or even months. High doses of amphetamines can cause seizures, confusion, hallucinations, delusions, high blood pressure, muscle damage, heart damage, or sudden . Many times these deadly complications occur even with "normal" doses. Injection of amphetamines is risky for developing abscesses, endocarditis (heart infection), pneumonia, and AIDS. Withdrawal from amphetamines often causes anxiety, depression, and drug cravings. Some users become paranoid and psychotic. There may be cramps, nausea, and vomiting. Many treatment programs are available, but you must make the decision to quit. Medication can be prescribed to control the symptoms of amphetamine toxicity (beta blockers or benzodiazepines). Withdrawal symptoms may require tranquilizers. FOLLOW-UP CARE: If you have been referred to a physician for follow-up care, call the physicians office for an appointment as you were instructed or within the next two days. If you experience worsening or a significant change in your symptoms, notify the physician immediately or return to the Emergency Department at any time for re-evaluation. Referrals: ROSAS HUBER, DATA DEVELOPER-C [Primary Care Provider] - Follow up as needed I personally performed the services described in the documentation, reviewed and edited the documentation which was dictated to the scribe in my presence, and it accurately records my words and actions.
[2019-12-31 23:22] LABS: ALBUMIN 3.5 g/dL (3.5-5.0); ALKALINE PHOSPHATASE 91 U/L (38-126); ANION GAP 6 (5-19); ASPARTATE AMINO TRANSFERASE 35 U/L (14-36); BILIRUBIN,DIRECT 0.2 mg/dL (0.0-0.4); BILIRUBIN,TOTAL 0.3 mg/dL (0.2-1.3); BLOOD UREA NITROGEN 21 mg/dL (7-20); CARBON DIOXIDE 27 mmol/L (22-30); CHLORIDE 105 mmol/L (98-107); CREATINE KINASE 202 U/L (30-135); GLUCOSE 122 mg/dL (75-110); TOTAL PROTEIN 6.7 g/dL (6.3-8.2)
[2019-12-31 23:28] LABS: CALCIUM 9.1 mg/dL (8.4-10.2)
[2019-12-31 23:29] LABS: ACETAMINOPHEN < 10 ug/mL (10-30); ALCOHOL < 10 mg/dL (NONE DETECTED)
[2020-01-01] MEDS: NORMAL SALINE 1000 ML 1,000 ML IV PRN (00:36)
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
--- NOTE | 2020-01-01 21:47 | PSYCHOLOGICAL NOTE ---
Psych Note - Psych Note Date seen by psych provider: 01/01/20 Psych Note: Impression/plan: patient is cleared from acute psychiatric services. Patient was at [facility] for polysubstance abuse. She confirms she took pills but denies she was trying to harm herself, she as trying to get some sleep. She confirms she would like to return to [facility] for continued treatment. She denies she wants to . [facility] confirm the patient can return to there facility. Patient is recommended to follow through with this voluntary placement. Dr. Fan as consulted on the care and management of his patient and attending physician is in agreement with recommendations and disposition.
[2020-01-01 21:49] VITALS: BP 100/59
== END 2020-01-01 22:20 | disposition home or self-care (01) ==
LOC: ER 21:19
DX: T50.902A Poisoning by unspecified drugs, medicaments and biological substances, intentional self-harm, initial encounter (principal); Y92.199 Unspecified place in other specified residential institution as the place of occurrence of the external cause; F17.200 Nicotine dependence, unspecified, uncomplicated; J45.909 Unspecified asthma, uncomplicated; M79.672 Pain in left foot; S93.409D Sprain of unspecified ligament of unspecified ankle, subsequent encounter
CPT/HCPCS: 93005; 99285; 96360; 96361; 36415; 82962; 80307 ×3; 82550; 83735; 85025; 81025; 80053; 81001; 84484; 71045; 93010; J7030 ×2

== ENCOUNTER 2020-04-06 21:01 | Emergency (ER) | payer MEDICAID ==
--- NOTE | 2020-04-06 22:41 | ER Document Report ---
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 EMS reports pt had a seizure earlier today and fell through a glass table. ems reports pt did not want to come to the hospital. EMS reports pt called EMS due to pain to her left knee r/t a chronic issue that has been going on since she was younger. pr reports her left knee keeps giving out on her when she walks. pt reports the pain to her left knee is 5/5. distal pulses, sensation and movement is intact to the LLE. Swelling noted to the left knee. pt has multiple small lacerations th roughout her body. pt reports she smoked marijuana, took percocet that was not her prescription and drank a few beers today. pt has multiple bruises throughout her body that are at different healing stages. pt reports she feel safe at home. pt reports feel sat and very stressed out. pt is withdrawn and limits responses to questions that are related to her safety and wellbeing. pt reports a hx of s eizures and takes Topamax daily. pt reports she did not take her seizure medication today. pt is A&OX4. Pt is able to speak in clear and complete sentences. respirations are even and non-labored. NAD noted at this time. TRAVEL OUTSIDE OF THE [place] IN LAST 30 DAYS: No - HPI Onset: Just prior to arrival Onset/Duration: Sudden, Persistent Quality of pain: Achy Severity: Moderate Pain Level: 2 Associated symptoms: None Exacerbated by: Denies Relieved by: Denies Similar symptoms previously: No Recently seen / treated by doctor: No - Related Data Allergies/Adverse Reactions: No Known Allergies Allergy (Verified 12/04/18 09:46) Past Medical History - General Information source: Patient - Social History Smoking Status: Current Every Day Smoker Cigarette use (# per day): No Chew tobacco use (# tins/day): No Smoking Education Provided: No Frequency of alcohol use: Social Drug Abuse: Marijuana, Other Lives with: Family Family History: Reviewed & Not Pertinent Patient has homicidal ideation: No Pulmonary Medical History: Reports: Hx Asthma Renal/ Medical History: Denies: Hx Peritoneal Dialysis Musculoskeletal Medical History: Reports Hx Musculoskeletal Trauma Psychiatric Medical History: Reports: Hx Anxiety, Hx Attention Deficit Hyperactivity Disorder, Hx Bipolar Disorder, Hx Depression - anxiety Past Surgical History: Reports: Hx Orthopedic Surgery - jaw - Immunizations Immunizations up to date: No Hx Diphtheria, Pertussis, Tetanus Vaccination: No - unknown Review of Systems - Review of Systems Constitutional: No symptoms reported EENT: No symptoms reported Cardiovascular: No symptoms reported Respiratory: No symptoms reported Gastrointestinal: No symptoms reported Genitourinary: No symptoms reported Female Genitourinary: No symptoms reported Musculoskeletal: See HPI, Joint swelling - Left knee lat noemí pain, Muscle pain, Muscle stiffness Skin: See HPI, Lesions - Multiple lacerations to bilateral forearms but the right forearm has most of the minor lacerations which includes a proximal forearm 1 cm length laceration by 1 cm with but no active bleeding. She also has a right foot abrasion across the dorsum of the metatarsal head #1 extending across to 2 and 3 this appears to be questionable burn. Hematologic/Lymphatic: No symptoms reported Neurological/Psychological: No symptoms reported Physical Exam - Vital signs Vitals: Temp 97.8 F 04/06/20 21:01 - Extremities General upper extremity: Tender, Other - Multiple lacerations to bilateral forearms but the right forearm has most of the minor lacerations which includes a proximal forearm 1 cm length laceration by 1 cm with but no active bleeding. She also has a right foot abrasion across the dorsum of the metatarsal head #1 extending across to 2 and 3 this appears to be questionable burn General lower extremity: Tender, Edema - Left lat knee pain on p/p pos drawer and collateral tests Course - Vital Signs Vital signs: Temp Pulse Resp BP Pulse Ox 97.8 F 82 18 124/77 100 04/06/20 21:17 04/06/20 21:17 04/06/20 21:17 04/06/20 21:17 04/06/20 21:17 - Diagnostic Test Radiology reviewed: Reports reviewed Critical Care Note - Critical Care Note Total time excluding time spent on procedures (mins): 60 Comments: I advised patient of her knee effusion on x-ray as well as negative CT neck and head. Also she was given 2 Percocet p.o. and one Motrin tablet. She was placed in a left knee immobilizer and advised to follow-up with Dr. John Batista orthopedics in his office call for appointment Discharge - Discharge Clinical Impression: Effusion, left knee Fall Qualifiers: Encounter type: initial encounter Qualified Code(s): W19.XXXA - Unspecified fall, initial encounter Lacerations of multiple sites of right arm Qualifiers: Encounter type: initial encounter Qualified Code(s): S41.111A - Laceration without foreign body of right upper arm, initial encounter Lacerations of multiple sites of left arm Qualifiers: Encounter type: initial encounter Qualified Code(s): S41.112A - Laceration without foreign body of left upper arm, initial encounter Laceration of right foot excluding toes without complication Qualifiers: Encounter type: initial encounter Qualified Code(s): S91.311A - Laceration without foreign body, right foot, initial encounter Condition: Good Disposition: HOME, SELF-CARE Additional Instructions: Follow-up with Dr. John Batista orthopedickarley in his office return to ER as needed take medicines as directed and keep left knee immobilizer in place until seen by orthopedics Prescriptions: Chlorzoxazone [Parafon Forte Dsc 500 Mg Tablet] 500 mg PO BID PRN 7 Days #14 tablet PRN Reason: Referrals: ROSAS HUBER FNP-C [Primary Care Provider] - Follow up as needed
[2020-04-06] MEDS ORDERED: LORAZEPAM INJ 2 MG/1 ML VIAL IM ONE (22:49)
[2020-04-06] MEDS ORDERED: HYDROMORPHONE HCL INJ/PF 2 MG/ML AMPULE IM ONE (22:49)
[2020-04-06] MEDS ORDERED: DIPH/PERTUSS(ACELL)/TETANUS VAC/PF 0.5 ML SYR (>=10YO) IM ONE (22:50)
--- NOTE | 2020-04-06 23:53 | RADIOLOGY REPORT (SQ) ---
CT cervical spine without contrast on 04/06/2020 at 11:26 PM CLINICAL INDICATION: Seizure, fall, per protocol for mechanism of injury TECHNIQUE: Multiple axial images are obtained throughout the cervical spine without the administration of contrast. Sagittal and coronal reformatted images are also performed and reviewed. This exam was performed according to our departmental dose-optimization program, which includes automated exposure control, adjustment of the mA and/or kV according to patient size and/or use of iterative reconstruction technique. Total DLP is 355.97 mGy*cm. COMPARISON: None FINDINGS: Reformatted images reveal normal alignment of the cervical spine. Mild degenerative disc disease is noted from C4 through C6. There are no acute fractures. No definite disc herniation is noted. There is no prevertebral soft tissue swelling. IMPRESSION: No acute fracture or malalignment of the cervical spine.
--- NOTE | 2020-04-06 23:54 | RADIOLOGY REPORT (SQ) ---
EXAM DESCRIPTION: Noncontrast CT head CLINICAL HISTORY: 34 years Female seizure fall TECHNIQUE: Noncontrast CT head. All CT scans at this facility use dose modulation, iterative reconstruction, and/or weight based dosing when appropriate to reduce radiation dose to as low as reasonably achievable. COMPARISON: April 18, 2019 FINDINGS: Foster matter, white matter, ventricles, and cisterns are within normal limits. No acute hemorrhage or mass effect. Incidental note is made of mineralization of the bilateral basal ganglia. Visualized portions of paranasal sinuses and mastoids are clear. Visualized portions of the calvarium are within normal limits. Piercings are incidentally noted. IMPRESSION: 1. No acute intracranial findings. If there is continued clinical concern for acute intracranial process, MRI should be considered as a more sensitive evaluation.
--- NOTE | 2020-04-06 23:57 | RADIOLOGY REPORT (SQ) ---
EXAM DESCRIPTION: X-RAY left Knee CLINICAL HISTORY: Status post fall COMPARISON: None available TECHNIQUE: Four views of the left knee joint. FINDINGS: There is no evidence of acute fractures or dislocations involving the bones of the left knee joint. There is radiographic evidence of a small suprapatellar joint effusion. The joint spaces are well maintained. There are no periosteal reactions involving the bones of the left knee joint. No radiopaque foreign body is identified. There is suggestion of diffuse soft tissue swelling. IMPRESSION: There are no acute bony findings in the left knee. Suprapatellar joint effusion and soft tissue swelling are nonspecific findings.
[2020-04-07] MEDS ORDERED: OXYCODONE-ACETAMINOPHEN 5-325 MG TABLET PO ONE (01:02)
[2020-04-07] MEDS ORDERED: IBUPROFEN 600 MG TABLET PO ONE (01:02)
[2020-04-07 01:15] VITALS: BP 114/84
== END 2020-04-07 01:21 | disposition home or self-care (01) ==
LOC: EEVIPCON 21:01 → ER 21:01
DX: M25.462 Effusion, left knee (principal); M25.562 Pain in left knee; S51.812A Laceration without foreign body of left forearm, initial encounter; S51.811A Laceration without foreign body of right forearm, initial encounter; S41.112A Laceration without foreign body of left upper arm, initial encounter; S41.111A Laceration without foreign body of right upper arm, initial encounter; S91.311A Laceration without foreign body, right foot, initial encounter; W13.8XXA Fall from, out of or through other building or structure, initial encounter; R56.9 Unspecified convulsions; Z79.899 Other long term (current) drug therapy; F12.10 Cannabis abuse, uncomplicated; F17.200 Nicotine dependence, unspecified, uncomplicated; J45.909 Unspecified asthma, uncomplicated; Z23 Encounter for immunization
CPT/HCPCS: 99285; 96372; 90471; 73564; 70450; 72125; 90715; J3490; J1170; J2060